=== PATIENT | female | born 1995 | race Hispanic/Latino ===

== ENCOUNTER 2017-09-29 23:07 | Emergency (ER) | payer SELFPAY ==
[2017-09-29] MEDS ORDERED: MAGNE/ALUM HYDROXD 30 ML UCUP ONE (23:44)
[2017-09-29] MEDS ORDERED: LIDOCAINE VISCOUS 2% SOLN 15 ML UDC ONE (23:44)
[2017-09-30 00:33] LABS: Absolute Lymphocytes (CBC) 3.6 K/uL (0.7-4.9); Absolute Monocytes 0.8 K/uL (0.1-1.3); Absolute Neutrophil 3.4 K/uL (1.8-8.0); Basophils % 0.6 % (0-1.3); Eosinophils % 2.5 % (0-4.4); Hematocrit 38.4 % (36.0-45.0); Lymphocytes % 44.9 % (15.3-44.8); MCH 30.4 pg (27.0-35.0); MCV 89.6 fL (80-100); Monocytes % 9.7 % (3.3-12.3); RBC Red Blood Cell Count 4.29 M/uL (3.86-4.86)
[2017-09-30 01:07] LABS: ALT/SGPT 63 U/L (12-78); AST/SGOT 48 U/L (15-37); Alkaline Phosphatase 84 U/L (45-117); BUN Blood Urea Nitrogen 10 mg/dL (7-18); Bicarbonate 24 mmol/L (21-32); Bilirubin Direct < 0.1 mg/dL (0-0.2); Bilirubin Total 0.4 mg/dL (0.2-1.0); Glucose Level 77 mg/dL (74-106); Lipase 296 U/L (73-393); Potassium 4.1 mmol/L (3.5-5.1); Protein, Total 7.6 g/dL (6.4-8.2); Sodium Level 142 mmol/L (136-145)
--- NOTE | 2017-09-30 01:14 | EDPHYS ---
Physician Documentation [facility] Name: Madison Bernabe Age: 22 yrs Sex: Female : 1995 Arrival Date: 09/29/2017 Time: 23:11 Bed 7 Private MD: ED Physician Nigel Titus HPI: 09/29 23:39 This 22 yrs old Female presents to ER via Wheelchair with complaints of Syncope, jr8 Vomiting. 23:39 The patient presents with abdominal pain in the epigastric area. Onset: The jr8 symptoms/episode began/occurred acutely, today. The symptoms do not radiate. Associated signs and symptoms: Pertinent positives: nausea and vomiting. The symptoms are described as sharp. Modifying factors: The symptoms are alleviated by nothing, the symptoms are aggravated by nothing. Severity of pain: At its worst the pain was moderate in the emergency department the pain is unchanged. The patient has experienced similar episodes in the past, several times. The patient has not recently seen a physician. Patient stated that she had acute onset epigastric pain and n/v that caused her to pass out. Did not hit head. Family member caught her. Stated that she has had this since she was young. Stated that she gets gastritis. 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 - Social history:: Smoking status: Patient/guardian denies using tobacco. - Ebola Screening: : Patient negative for fever greater than or equal to 101.5 degrees Fahrenheit, and additional compatible Ebola Virus Disease symptoms Patient denies exposure to infectious person Patient denies travel to an Ebola-affected area in the 21 days before illness onset. ROS: 23:39 Eyes: Negative for injury, pain, redness, and discharge, ENT: Negative for injury, jr8 pain, and discharge, Neck: Negative for injury, pain, and swelling, Cardiovascular: Negative for chest pain, palpitations, and edema, Respiratory: Negative for shortness of breath, cough, wheezing, and pleuritic chest pain, Back: Negative for injury and pain, MS/Extremity: Negative for injury and deformity, Skin: Negative for injury, rash, and discoloration, Neuro: Negative for headache, weakness, numbness, tingling, and seizure. 23:39 Abdomen/GI: Positive for abdominal pain, nausea and vomiting, Negative for diarrhea, constipation, abdominal cramps, abdominal distension, anorexia, dysphagia, hematemesis, black/tarry stool, rectal pain, rectal bleeding, bowel incontinence, flatulence. Exam: 23:39 Head/Face: Normocephalic, atraumatic. Eyes: Pupils equal round and reactive to light, jr8 extra-ocular motions intact. Lids and lashes normal. Conjunctiva and sclera are non-icteric and not injected. Cornea within normal limits. Periorbital areas with no swelling, redness, or edema. ENT: Nares patent. No nasal discharge, no septal abnormalities noted. Tympanic membranes are normal and external auditory canals are clear. Oropharynx with no redness, swelling, or masses, exudates, or evidence of obstruction, uvula midline. Mucous membranes moist. Neck: Trachea midline, no thyromegaly or masses palpated, and no cervical lymphadenopathy. Supple, full range of motion without nuchal rigidity, or vertebral point tenderness. No Meningismus. Cardiovascular: Regular rate and rhythm with a normal S1 and S2. No gallops, murmurs, or rubs. Normal PMI, no JVD. No pulse deficits. Respiratory: Lungs have equal breath sounds bilaterally, clear to auscultation and percussion. No rales, rhonchi or wheezes noted. No increased work of breathing, no retractions or nasal flaring. Back: No spinal tenderness. No costovertebral tenderness. Full range of motion. Skin: Warm, dry with normal turgor. Normal color with no rashes, no lesions, and no evidence of cellulitis. MS/ Extremity: Pulses equal, no cyanosis. Neurovascular intact. Full, normal range of motion. Neuro: Awake and alert, GCS 15, oriented to person, place, time, and situation. Cranial nerves II-XII grossly intact. Motor strength 5/5 in all extremities. Sensory grossly intact. Cerebellar exam normal. Normal gait. 23:39 Abdomen/GI: Inspection: abdomen appears normal, Bowel sounds: active, all quadrants, Palpation: soft, in all quadrants, mild abdominal tenderness, in the epigastric area, right upper quadrant and left upper quadrant, mass, is not appreciated, rebound tenderness, is not appreciated, voluntary guarding, is not appreciated, involuntary guarding, is not appreciated, no appreciated organomegaly, Indicators: McBurney's point is not tender, Figueroa's sign is negative, Rovsing's sign is negative, Liver: no appreciated palpable abnormalities, tenderness, is not appreciated. Vital Signs: 23:10 BP 113 / 68; Pulse 89; Resp 20; Temp 97.9; Pulse Ox 99% on R/A; Weight 52.62 kg (R); fc Height 5 ft. 1 in. (154.94 cm) (R); Pain 9/10; 09/30 00:26 BP 105 / 53; Pulse 84; Resp 16; Pulse Ox 100% on R/A; Pain 0/10; aa1 01:23 BP 103 / 64; Pulse 74; Resp 16; Temp 98; Pulse Ox 99% on R/A; Pain 0/10; ak1 09/29 23:10 Body Mass Index 21.92 (52.62 kg, 154.94 cm) fc MDM: 09/29 23:26 Patient medically screened. [facility] 09/30 01:13 Data reviewed: vital signs, nurses notes, lab test result(s), and as a result, I will jr8 discharge patient. Data interpreted: Pulse oximetry: on room air is 100 %. Interpretation: normal. Counseling: I had a detailed discussion with the patient and/or guardian regarding: the historical points, exam findings, and any diagnostic results supporting the discharge/admit diagnosis, lab results, the need for outpatient follow up, a rhit, to return to the emergency department if symptoms worsen or persist or if there are any questions or concerns that arise at home. 09/29 23:34 Order name: Basic Metabolic Panel; Complete Time: 01:12 09/29 23:34 Order name: CBC with Diff; Complete Time: 00:46 09/29 23:34 Order name: Hepatic Function; Complete Time: 09/29 23:34 Order name: Lipase; Complete Time: : [facility] 09/29 23:37 Order name: Urine Dipstick--Ancillary (enter results); Complete Time: 01:22 [facility] 09/29 23:34 Order name: Urine Test (obtain specimen); Complete Time: 23:39 09/29 23:34 Order name: IV Saline Lock; Complete Time: 00:25 09/29 23:34 Order name: Labs collected and sent; Complete Time: 00:25 09/29 23:34 Order name: Urine Dipstick-Ancillary (obtain specimen); Complete Time: 23:38 09/29 23:37 Order name: Urine --Ancillary (enter results); Complete Time: 01:22 rg2 Administered Medications: 09/29 23:44 Drug: GI Cocktail without - (Maalox Suspension 30 ml, Lidocaine Liquid 2 % 15 aa1 ml) Route: PO; 09/30 00:25 Follow up: Response: Marked relief of symptoms aa1 01:23 Follow up: Response: No adverse reaction ak1 Disposition: 09:32 Co-signature as Attending Physician, Nigel Titus MD I agree with the assessment and reene plan of care. Disposition: 09/30/17 01:13 Discharged to Home. Impression: Gastritis, unspecified. - Condition is Stable. - Discharge Instructions: Gastritis, Adult. - Prescriptions for omeprazole 40 mg Oral capsule,delayed release(DR/EC) - take 1 capsule by ORAL route once daily before a meal; 30 capsule. - Medication Reconciliation Form, Thank You Letter, Antibiotic Education, Prescription Opioid Use form. - Follow up: Private Physician; When: 2 - 3 days; Reason: Recheck today's complaints, Continuance of care, Re-evaluation by your physician. - Problem is new. - Symptoms have improved. Signatures: Dispatcher [employer] [facility] Bernadine Mcdonnell RN RN aa1 Nigel Titus MD MD cha Chretien, Felicia RN RN Adam Youssef PA PA jr8 January Knox RN RN ak1 Corrections: (The following items were deleted from the chart) 00:28 09/29 23:34 Creatinine for Radiology+C.LAB.BRZ ordered. [facility] 09/30 01:28 01:13 09/30/2017 01:13 Discharged to Home. Impression: Gastritis, unspecified. ak1 Condition is Stable. Forms are Medication Reconciliation Form, Thank You Letter, Antibiotic Education, Prescription Opioid Use. Follow up: Private Physician; When: 2 - 3 days; Reason: Recheck today's complaints, Continuance of care, Re-evaluation by your physician. Problem is new. Symptoms have improved. jr8
--- NOTE | 2017-09-30 01:14 | ER ---
Nurse's Notes [facility] Name: Madison Bernabe Age: 22 yrs Sex: Female : 1995 Arrival Date: 09/29/2017 Time: 23:11 Bed 7 Private MD: Diagnosis: Gastritis, unspecified Presentation: 09/29 23:10 Presenting complaint: Significant other states: that she was having nausea, got up to go to bathroom and passed out. He caught pt and she did not hit the ground. Did this additional 2 times. States this has happened before and she was told that it was gastris. Transition of care: patient was not received from another setting of care. Onset of symptoms was September 29, 2017. Risk Assessment: Do you want to hurt yourself or someone else? Patient reports no desire to harm self or others. Initial Sepsis Screen: Does the patient meet any 2 criteria? No. Patient's initial sepsis screen is negative. Does the patient have a suspected source of infection? No. Patient's initial sepsis screen is negative. Care prior to arrival: None. 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 - Social history:: Smoking status: Patient/guardian denies using tobacco. - Ebola Screening: : Patient negative for fever greater than or equal to 101.5 degrees Fahrenheit, and additional compatible Ebola Virus Disease symptoms Patient denies exposure to infectious person Patient denies travel to an Ebola-affected area in the 21 days before illness onset. Screenin:28 Abuse screen: Denies threats or abuse. Nutritional screening: No deficits noted. Tuberculosis screening: No symptoms or risk factors identified. Fall Risk Fall in past 12 months (25 points). Secondary diagnosis (15 points) syncope. No IV (0 pts). Ambulatory Aid- None/Bed Rest/Nurse Assist (0 pts). Gait- Weak (10 pts.). Mental Status- Overestimates/Forgets Limitations (15 pts.). Total Cormier Fall Scale indicates High Risk Score (45 or more points). Fall prevention measures have been instituted. Side Rails Up X 2 Placed Close to Nursing Station Frequent Obs/Assessments Occuring Family Present and informed to notify staff if the need to leave the bedside As available patient and family educated on Fall Prevention Program and Strategies. Assessment: 23:40 General: Appears in no apparent distress. comfortable, Behavior is calm, cooperative, aa1 appropriate for age. Pain: Complains of pain in left upper quadrant and right upper quadrant and epigastric area Quality of pain is described as burning, Pain began 2-3 days ago. Neuro: Level of Consciousness is awake, alert, obeys commands, Oriented to person, place, time, situation, Moves all extremities. Full function Gait is steady, Reports a syncopal episode. Cardiovascular: Denies chest pain, diaphoresis, palpitations, shortness of breath, Heart tones S1 S2 present Rhythm is regular. Respiratory: Airway is patent Respiratory effort is even, unlabored, Respiratory pattern is regular, symmetrical. GI: Abdomen is non-distended, Abd is soft and non tender X 4 quads. Reports epigastric pain, nausea, vomiting. : No signs and/or symptoms were reported regarding the genitourinary system. EENT: No signs and/or symptoms were reported regarding the EENT system. Derm: Skin is intact, is healthy with good turgor, Skin is pink, warm \T\ dry. Musculoskeletal: Circulation, motion, and sensation intact. Capillary refill < 3 seconds. Vital Signs: 23:10 BP 113 / 68; Pulse 89; Resp 20; Temp 97.9; Pulse Ox 99% on R/A; Weight 52.62 kg (R); fc Height 5 ft. 1 in. (154.94 cm) (R); Pain 9/10; 09/30 00:26 BP 105 / 53; Pulse 84; Resp 16; Pulse Ox 100% on R/A; Pain 0/10; aa1 01:23 BP 103 / 64; Pulse 74; Resp 16; Temp 98; Pulse Ox 99% on R/A; Pain 0/10; ak1 09/29 23:10 Body Mass Index 21.92 (52.62 kg, 154.94 cm) ED Course: 09/29 23:10 Arm band placed on Patient placed in an exam room, on a stretcher. fc 23:11 Patient arrived in ED. al2 23:20 Urine collected: clean catch specimen, clear. aa1 23:26 Adam Lopez PA is PHCP. jr8 23:26 Nigel Titus MD is Attending Physician. jr8 23:26 Triage completed. fc 23:29 Patient has correct armband on for positive identification. Placed in gown. Bed in low fc position. Call light in reach. Side rails up X 1. 23:37 Bernadine Mcdonnell, RN is Primary Nurse. aa1 23:45 Missed attempt(s): 20 gauge in right antecubital area. by Juliana Ordonez SoraaLizandro Bleeding aa1 controlled, band aid applied, catheter tip intact. 23:55 Missed attempt(s): 20 gauge in left antecubital area. by Juliana Ordonez SoraaLizandro Bleeding aa1 controlled, band aid applied, catheter tip intact. 09/30 00:05 Initial lab(s) drawn, by va, sent to lab. Inserted saline lock: 22 gauge in right aa1 antecubital area, using aseptic technique. Blood collected. 01:23 No provider procedures requiring assistance completed. IV discontinued, intact, ak1 bleeding controlled, No redness/swelling at site. Pressure dressing applied. Administered Medications: 09/29 23:44 Drug: GI Cocktail without - (Maalox Suspension 30 ml, Lidocaine Liquid 2 % 15 aa1 ml) Route: PO; 09/30 00:25 Follow up: Response: Marked relief of symptoms aa1 01:23 Follow up: Response: No adverse reaction ak1 Outcome: 01:13 Discharge ordered by . jr8 01:23 Discharged to home ambulatory, with family. ak1 01:23 Condition: good 01:23 Discharge instructions given to patient, Instructed on discharge instructions, follow up and referral plans. no drinking with medication, no driving heavy equipment, medication usage, Demonstrated understanding of instructions, follow-up care, medications, Prescriptions given X 1. 01:28 Patient left the ED. ak1 Signatures: Bernadine Mcdonnell, RN RN aa1 Mell Courtney RN RN Adam Lopez PA PA jr8 January Knox RN RN ak1 Shruthi Aguilar al2 Corrections: (The following items were deleted from the chart) 09/29 23:31 23:10 BP 113 / 68; Pulse 89bpm; Resp 20bpm; Pulse Ox 99% RA; 52.62 kg Reported; Height fc 5 ft. 1 in. Reported; BMI: 21.9; Pain 9/10; fc
[2017-09-30 01:21] LABS: Urine Blood TRACE (NEG); Urine Glucose NEGATIVE (NEG); Urine Protein NEGATIVE (NEG); Urine Specific Gravity 1.015 (1.005-1.030)
== END 2017-09-30 01:28 | disposition home or self-care (01) ==
LOC: ER 23:07
DX: K29.70 Gastritis, unspecified, without bleeding (principal); R55 Syncope and collapse; J45.909 Unspecified asthma, uncomplicated; R11.10 Vomiting, unspecified
CPT/HCPCS: 36415; 80048; 80076; 81003; 81025; 83690; 85025; 99284

== ENCOUNTER 2018-02-11 22:52 | Emergency (ER) | payer SELFPAY ==
[2018-02-11 23:59] LABS: Absolute Lymphocytes (CBC) 3.2 K/uL (0.7-4.9); Absolute Monocytes 0.6 K/uL (0.1-1.3); Absolute Neutrophil 3.1 K/uL (1.8-8.0); Basophils % 0.6 % (0-1.3); Eosinophils % 3.1 % (0-4.4); Hematocrit 37.2 % (36.0-45.0); Lymphocytes % 44.8 % (15.3-44.8); MCH 31.6 pg (27.0-35.0); MCV 91.5 fL (80-100); RBC Red Blood Cell Count 4.06 M/uL (3.86-4.86)
[2018-02-12 00:11] LABS: BUN Blood Urea Nitrogen 13 mg/dL (7-18); Bicarbonate 25 mmol/L (21-32); Glucose Level 89 mg/dL (74-106); Potassium 3.6 mmol/L (3.5-5.1); Sodium Level 140 mmol/L (136-145)
[2018-02-12 00:12] LABS: HCG, Quantitative < 1 mIU/mL (1-3)
[2018-02-12 00:44] LABS: Urine Blood 2+ (NEG); Urine Glucose NEGATIVE (NEG); Urine Protein NEGATIVE (NEG); Urine Specific Gravity 1.015 (1.005-1.030); Urine pH 7.5 (5.0-7.0)
--- NOTE | 2018-02-12 02:05 | ER ---
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 Transition of care: patient was not received from another setting of care. Onset of symptoms was February 11, 2018 at 22:30. Risk Assessment: Do you want to hurt yourself or someone else? Patient reports no desire to harm self or others. Initial Sepsis Screen: Does the patient meet any 2 criteria? No. Patient's initial sepsis screen is negative. Does the patient have a suspected source of infection? No. Patient's initial sepsis screen is negative. Care prior to arrival: None. 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 - Social history:: Smoking status: Patient/guardian denies using tobacco. - Ebola Screening: : No symptoms or risks identified at this time. Screenin:15 Abuse screen: Denies threats or abuse. Denies injuries from another. Nutritional lp1 screening: No deficits noted. Tuberculosis screening: No symptoms or risk factors identified. Fall Risk None identified. Assessment: 23:16 General: Appears in no apparent distress. Behavior is appropriate for age. Pain: lp1 Complains of pain in suprapubic area Pain currently is 10 out of 10 on a pain scale. Quality of pain is described as pressure, stabbing. Neuro: Level of Consciousness is awake, alert, obeys commands, Oriented to person, place, time, situation. Cardiovascular: Patient's skin is warm and dry. Respiratory: Respiratory effort is even, unlabored. GI: Abdomen is flat. : Reports vaginal bleeding that is bright red, with clots. EENT: No signs and/or symptoms were reported regarding the EENT system. Derm: Skin is pink, warm \T\ dry. Musculoskeletal: No deficits noted. 02/12 02:00 Reassessment: Patient appears in no apparent distress at this time. Patient is alert, lp1 oriented x 3, equal unlabored respirations, skin warm/dry/pink. Vital Signs: 02/11 23:13 BP 125 / 65; Pulse 65; Resp 16; Temp 97.9(O); Pulse Ox 100% on R/A; Weight 54.43 kg; lp1 Height 5 ft. 1 in. (154.94 cm); Pain 01/01; 02/12 02:00 BP 107 / 60; Pulse 70; Resp 16; Pulse Ox 100% on R/A; lp1 02/11 23:13 Body Mass Index 22.67 (54.43 kg, 154.94 cm) lp1 ED Course: 02/11 22:56 Patient arrived in ED. ds1 22:58 Jose Daniel De La Vega PA is PHCP. jmm 22:58 [place] Kathleen MD is Attending Physician. jmm 23:05 Barbara Tran, EVAN is Primary Nurse. lp1 23:07 Triage completed. lp1 23:14 Arm band placed on left wrist. lp1 23:17 Patient has correct armband on for positive identification. Placed in gown. Bed in low lp1 position. Pulse ox on. NIBP on. 23:47 Initial lab(s) drawn, by me, sent to lab. lp1 02/12 00:31 Inserted saline lock: 24 gauge in left antecubital area, using aseptic technique. ak1 01:10 CT Abd/Pelvis - W/Contrast In Process Unspecified. EDMS 01:10 CT completed. Patient tolerated procedure well. Patient moved to CT via wheelchair. Patient moved back from CT. 02:04 Sly Mccann MD is Referral Physician. jmm 02:12 No provider procedures requiring assistance completed. lp1 02:16 IV discontinued, No redness/swelling at site. Pressure dressing applied. lp1 Administered Medications: No medications were administered Point of Care Testing: Urine : 02/11 23:47 hCG Reading: Negative; Control Reading: Negative; lp1 Outcome: 02/12 02:05 Discharge ordered by . flores 02:16 Discharged to home ambulatory, with significant other. lp1 02:16 Condition: good 02:16 Discharge instructions given to patient, Instructed on discharge instructions, follow up and referral plans. Demonstrated understanding of instructions, follow-up care. 02:16 Patient left the ED. lp1 Signatures: Dispatcher [employer] EDMS Jose Daniel De La Vega PA PA jmm Hagler, Ervin eh Sanford, Demi ds1 Barbara Tran, RN RN lp1 January Knox RN RN ak1
--- NOTE | 2018-02-12 02:06 | EDPHYS ---
Physician Documentation [facility] Name: Madison Bernabe Age: 22 yrs Sex: Female : 1995 Arrival Date: 02/11/2018 Time: 22:56 Bed 20 Private MD: ED Physician Washington Kathleen HPI: 02/11 23:00 This 22 yrs old Female presents to ER via Ambulatory with complaints of jmm Vaginal Bleeding, + Preg <12wks. 23:00 The patient presents with vaginal bleeding that is heavy. Onset: The symptoms/episode jmm began/occurred acutely, just prior to arrival. Associated signs and symptoms: Pertinent positives: pelvic pain. This is a 22 year old female with a history of asthma that presents to the ED with pelvic pain, vaginal bleeding beginning abruptly this evening. Patient states having positive tests at home. . 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 - Social history:: Smoking status: Patient/guardian denies using tobacco. - Ebola Screening: : No symptoms or risks identified at this time. ROS: 23:00 Constitutional: Negative for fever, chills, and weight loss, Eyes: Negative for injury, jmm pain, redness, and discharge, Cardiovascular: Negative for chest pain, palpitations, and edema, Respiratory: Negative for shortness of breath, cough, wheezing, and pleuritic chest pain. 23:00 : Positive for pelvic pain, vaginal bleeding. 23:00 All other systems are negative. Exam: 23:00 Constitutional: This is a well developed, well nourished patient who is awake, alert, jmm and in no acute distress. Head/Face: atraumatic. Chest/axilla: Normal chest wall appearance and motion. Cardiovascular: Regular rate and rhythm. No edema appreciated Respiratory: Normal respirations, no respiratory distress appreciated 23:00 : Pelvic Exam: Speculum exam: mild bleeding, bimanual exam reveals os that is closed, right adnexal tenderness, left adnexal tenderness. 23:00 Skin: Appearance: Color: normal in color. 23:00 Neuro: Orientation: is normal, Mentation: is normal, Memory: is normal. 23:00 Psych: Behavior/mood is pleasant, cooperative. Vital Signs: 23:13 BP 125 / 65; Pulse 65; Resp 16; Temp 97.9(O); Pulse Ox 100% on R/A; Weight 54.43 kg; lp1 Height 5 ft. 1 in. (154.94 cm); Pain 01/01; 02/12 02:00 BP 107 / 60; Pulse 70; Resp 16; Pulse Ox 100% on R/A; lp1 02/11 23:13 Body Mass Index 22.67 (54.43 kg, 154.94 cm) [facility] MDM: 02/11 23:[address] [facility] 02/12 02:04 Data reviewed: vital signs, nurses notes. Counseling: I had a detailed discussion with [facility] the patient and/or guardian regarding: the historical points, exam findings, and any diagnostic results supporting the discharge/admit diagnosis, lab results, radiology results, the need for outpatient follow up, to return to the emergency department if symptoms worsen or persist or if there are any questions or concerns that arise at home. 02/11 23:18 Order name: Quantitative Hcg [facility] 02/11 23:18 Order name: Abo/rh Typing; Complete Time: 00:48 [facility] 02/11 23:18 Order name: Basic Metabolic Panel; Complete Time: 00:17 [facility] 02/11 23:18 Order name: CBC with Diff; Complete Time: 00:06 [facility] 02/11 23:19 Order name: HCG, Quantitative; Complete Time: 00:17 [facility] 02/12 00:03 Order name: Urine Dipstick--Ancillary (enter results); Complete Time: 00:48 ar[facility] 02/11 23:01 Order name: Urine Test (obtain specimen); Complete Time: 23:48 [facility] 02/11 23:01 Order name: Urine Dipstick-Ancillary (obtain specimen); Complete Time: 23:48 [facility] 02/11 23:18 Order name: IV Saline Lock; Complete Time: 00:33 [facility] 02/11 23:18 Order name: Labs collected and sent; Complete Time: 23:48 [facility] 02/11 23:18 Order name: NPO; Complete Time: 23:48 [facility] 02/12 00:22 Order name: CT Abd/Pelvis - W/Contrast [facility] Administered Medications: No medications were administered Point of Care Testing: Urine : 02/11 23:47 hCG Reading: Negative; Control Reading: Negative; lp1 Disposition: 02/12 05:02 Co-signature as Attending Physician, Washington Kathleen MD I agree with the assessment and tw4 plan of care. Disposition: 02/12/18 02:05 Discharged to Home. Impression: pelvic pain, Other abnormal uterine and vaginal bleeding. - Condition is Stable. - Discharge Instructions: Pelvic Pain, Female, Dysfunctional Uterine Bleeding. - Medication Reconciliation Form, Thank You Letter, Antibiotic Education, Prescription Opioid Use form. - Follow up: Sly Mccann MD; When: 2 - 3 days; Reason: Recheck today's complaints, Continuance of care, Re-evaluation by your physician. Signatures: Dispatcher [employer] [facility] Jose Daniel De La Vega PA PA [facility] Barbara Tran, RN RN lp1 Washington Kathleen MD MD tw4 Corrections: (The following items were deleted from the chart) 01:48 02/11 23:20 Transvaginal Ob+US.RAD.BRZ ordered. [facility] 02/12 02:16 02:05 02/12/2018 02:05 Discharged to Home. Impression: pelvic pain; Other abnormal lp1 uterine and vaginal bleeding. Condition is Stable. Forms are Medication Reconciliation Form, Thank You Letter, Antibiotic Education, Prescription Opioid Use. Follow up: Sly Mccann; When: 2 - 3 days; Reason: Recheck today's complaints, Continuance of care, Re-evaluation by your physician. [facility]
--- NOTE | 2018-02-12 08:08 | RAD REPORT ---
EXAM DESCRIPTION: CT - Abdomen Pelvis W Contrast - 02/12/2018 3:23 am CLINICAL HISTORY: Abdominal pain with vaginal bleeding COMPARISON: none. TECHNIQUE: Computed axial tomography of the abdomen pelvis was obtained. 100 cc Isovue-300 was admin istered intravenously. Oral contrast was not requested which limits evaluation of bowel.A preliminary report generated by [employer] in review prior to dictation All CT scans are performed using dose optimization technique as appropriate and may include automated exposure control or mA/KV adjustment according to patient size. FINDINGS: The liver, spleen, pancreas, adrenal and kidneys appear unremarkable. There is no evidence of diverticulitis. The appendix is normal. Endometrial stripe measures 13 millimeters Prominent bilateral ovarian follicles. Significant free fluid is not noted IMPRESSION: Prominent bilateral ovarian follicles may indicate polycystic ovarian syndrome
== END 2018-02-12 02:16 | disposition home or self-care (01) ==
LOC: ER 22:52
DX: N93.9 Abnormal uterine and vaginal bleeding, unspecified (principal)
CPT/HCPCS: 36415; 74177; 80048; 81003; 84702; 85025; 86900; 86901; 99284; Q9967

== ENCOUNTER 2018-10-16 10:53 | Emergency (ER) | payer SELFPAY ==
[2018-10-16] MEDS ORDERED: ACETAMINOPHEN 500 MG TAB ONE (11:24)
[2018-10-16 11:34] LABS: Specific Gravity 1.015 (1.005-1.030)
[2018-10-16] MEDS ORDERED: CEFTRIAXONE/SWI 1gm 1 GM/10 ML SYR ONE (11:39)
[2018-10-16] MEDS ORDERED: NA CHLORIDE 0.9% 1,000 ML ONE (11:39)
[2018-10-16 11:41] LABS: Absolute Lymphocytes (CBC) 0.7 K/uL (0.7-4.9); Basophils % 0.2 % (0-1.3); Lymphocytes % 8.1 % (15.3-44.8); MPV 8.8 fL (7.6-11.3)
[2018-10-16 11:51] LABS: Potassium 3.5 mmol/L (3.5-5.1)
[2018-10-16] MEDS ORDERED: MORPHINE 4 MG/ML SYR ONE (11:57)
[2018-10-16] MEDS ORDERED: ONDANSETRON 4 MG/2 ML VIAL ONE (11:57)
[2018-10-16 12:07] LABS: Blood Morphology Comment NOT SEEN (NOT SEEN); Platelet Estimate ADEQ
[2018-10-16 12:17] LABS: Urine Amorphous Sediment 3+ /HPF (NONE SEEN); Urine Bacteria 20-50 /HPF (<20); Urine RBC TNTC /HPF (NONE SEEN)
[2018-10-16 12:19] LABS: Urine Culture Reflex Order REFLEXED
--- NOTE | 2018-10-16 13:22 | RAD REPORT ---
EXAM DESCRIPTION: CT - Abdomen Pelvis W Contrast - 10/16/2018 1:09 pm CLINICAL HISTORY: Back pain, dysuria, fever COMPARISON: CT study January 2018 TECHNIQUE: Biphasic, helical CT imaging of the abdomen and pelvis was performed following 100 ml non -ionic IV contrast. No oral contrast given. All CT scans are performed using dose optimization technique as appropriate and may include automated exposure control or mA/KV adjustment according to patient size. FINDINGS: No suspicious findings in the lung bases. The liver, spleen, and pancreas show no suspicious findings. Gallbladder and biliary tree are also wi thout suspicious finding. Numerous areas of diminished enhancement are seen in the right renal parenchyma. This is a typical py elonephritis pattern. No renal or perinephric abscess. Right kidney is minimally edematous and there is only a trace amount of perinephric stranding. No obstructing or nonobstructing calculi. No solid m ass of either kidney. No bladder wall thickening or mass identifiable. No bladder calculi. No adrenal abnormalities. Fluid is retained within an otherwise unremarkable stomach. No dilated large or small bowel. No appen dicitis. Uterus and ovaries show no suspicious findings. There are small follicles in each ovary but no new ov brian finding from the 2018 comparison. No free air or pneumatosis. No abnormal free fluid. No brianne ia, mass or bulky lymphadenopathy. No suspicious bony findings. IMPRESSION: Right-sided pyelonephritis. No abscess or other complicating finding.
--- NOTE | 2018-10-16 13:44 | ER ---
Nurse's Notes [facility] Name: Madison Bernabe Age: 23 yrs Sex: Female : 1995 Arrival Date: 10/16/2018 Time: 10:54 Bed 17 Private MD: Diagnosis: Acute tubulo-interstitial nephritis;Urinary tract infection, site not specified Presentation: 10/16 11:01 Presenting complaint: Patient states: my back hurts and it started 3 days ago, it roberts hj when i pee; reports fever and abd pain; reports N/V;. Transition of care: patient was not received from another setting of care. Onset of symptoms was October 16, 2018. Risk Assessment: Do you want to hurt yourself or someone else? Patient reports no desire to harm self or others. Initial Sepsis Screen: Does the patient meet any 2 criteria? No. Patient's initial sepsis screen is negative. Does the patient have a suspected source of infection? No. Patient's initial sepsis screen is negative. Care prior to arrival: None. 11:01 Method Of Arrival: Ambulatory 11:01 Acuity: DAE 3 Triage Assessment: 11:05 Headache History: The patient has had previous headaches and this one is similar to bp previous episodes. General: Appears in no apparent distress. uncomfortable, Behavior is cooperative, appropriate for age, anxious. Pain: Complains of pain in right flank. Pain: Pain currently is 8 out of 10 on a pain scale. Pain began 1 day ago. Also complains of nausea. EENT: No deficits noted. Neuro: No deficits noted. Cardiovascular: No deficits noted. Respiratory: No deficits noted. GI: No signs and/or symptoms were reported involving the gastrointestinal system. : Reports burning with urination. Derm: No deficits noted. Musculoskeletal: No deficits noted. 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 - Social history:: Smoking status: Patient/guardian denies using tobacco. - Ebola Screening: : No symptoms or risks identified at this time. Screenin:10 Abuse screen: Denies threats or abuse. Denies injuries from another. Nutritional bp screening: No deficits noted. Tuberculosis screening: No symptoms or risk factors identified. Fall Risk None identified. Assessment: 11:05 General: SEE TRIAGE NOTE. bp 12:04 Reassessment: CT PENDING. bp 13:55 Reassessment: PT D/C HOME AMBULATORY WITH FAMILY, DX WITH PYELONEPHRITIS. bp Vital Signs: 11:02 BP 107 / 58; Pulse 124; Resp 20; Temp 102.9(TE); Pulse Ox 100% on R/A; Weight 55.34 kg; hj Height 5 ft. 1 in. (154.94 cm); Pain 10/10; 12:05 BP 97 / 43; Pulse 100; Resp 16; Pulse Ox 99% ; bp 13:55 BP 100 / 79; Pulse 93; Resp 16; Temp 98.7; Pulse Ox 98% ; bp 11:02 Body Mass Index 23.05 (55.34 kg, 154.94 cm) hj ED Course: 10:54 Patient arrived in ED. as 11:02 Triage completed. hj 11:02 Arm band placed on right wrist. hj 11:05 Paula Quintana FNP-C is PHCP. kb 11:05 Desmond Bejarano MD is Attending Physician. kb 11:10 Patient has correct armband on for positive identification. Bed in low position. Call bp light in reach. Side rails up X2. Adult w/ patient. 11:16 Andry Son, RN is Primary Nurse. bp 11:25 Inserted saline lock: 22 gauge in right antecubital area, using aseptic technique. bp Blood collected. 13:10 CT Abd/Pelvis - IV Contrast Only In Process Unspecified. EDMS 13:56 No provider procedures requiring assistance completed. IV discontinued, intact, bp bleeding controlled, No redness/swelling at site. Pressure dressing applied. Administered Medications: 11:07 Drug: Tylenol 1000 mg Route: PO; hj 11:35 Follow up: Response: No adverse reaction bp 11:30 Drug: NS 0.9% 1000 ml Route: IV; Rate: 1000 ml; Site: right antecubital; bp 13:57 Follow up: IV Status: Completed infusion bp 11:30 Drug: Rocephin 1 grams Route: IV; Rate: calculated rate; Site: right antecubital; bp 12:00 Follow up: IV Status: Completed infusion; IV Intake: 20ml bp 11:45 Drug: morphine 4 mg Route: IVP; Site: right antecubital; bp 13:50 Follow up: Response: Pain is decreased bp 11:45 Drug: Zofran 4 mg Route: IVP; Site: right antecubital; bp 13:50 Follow up: Response: No adverse reaction; Pain is decreased bp Intake: 12:00 IV: 20ml; Total: 20ml. bp Outcome: 13:44 Discharge ordered by MD. leija 13:56 Discharged to home ambulatory. bp 13:56 Condition: stable 13:56 Discharge instructions given to patient, Instructed on discharge instructions, follow up and referral plans. medication usage, Demonstrated understanding of instructions, follow-up care, medications, Prescriptions given X 1. 13:57 Patient left the ED. bp Addendum: 10/19/2018 15:04 Addendum: Culture Results: Positive urine culture. Phone call Attempt #1 Wrong number s s Certified letter sent to listed address for patient. Signatures: Dispatcher [employer] EDMS Paula Quintana, REAGENT TENDER HELPER-C REAGENT TENDER HELPER-Aurea Garces Shelby, RN RN Onesimo Gold, EVAN RN Andry Robison, EVAN RN bp Corrections: (The following items were deleted from the chart) 10/16 11:04 11:02 Pulse 124bpm; Resp 20bpm; Pulse Ox 100% RA; Temp 102.9F Temporal; 55.34 kg; hj Height 5 ft. 1 in.; BMI: 23.0; Pain 10/10; hj
--- NOTE | 2018-10-16 13:44 | EDPHYS ---
Physician Documentation [facility] Name: Madison Bernabe Age: 23 yrs Sex: Female : 1995 Arrival Date: 10/16/2018 Time: 10:54 Bed 17 Private MD: ED Physician Desmond Bejarano HPI: 10/16 13:21 This 23 yrs old Female presents to ER via Ambulatory with complaints of Fever, kb Headache, Back Pain, Abdominal Pain. 13:21 The patient presents with flank pain, on the right, urinary symptoms, dysuria, kb frequency. Onset: The symptoms/episode began/occurred 3 day(s) ago. Modifying factors: The symptoms are alleviated by nothing, the symptoms are aggravated by nothing. Associated signs and symptoms: Pertinent positives: dysuria, fever, urinary frequency. Severity of symptoms: At their worst the symptoms were moderate, in the emergency department the symptoms are unchanged. The patient has not experienced similar symptoms in the past. The patient has not recently seen a physician. 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 - Social history:: Smoking status: Patient/guardian denies using tobacco. - Ebola Screening: : No symptoms or risks identified at this time. ROS: 13:20 ENT: Negative for injury, pain, and discharge, Neck: Negative for injury, pain, and kb swelling, Cardiovascular: Negative for chest pain, palpitations, and edema, Respiratory: Negative for shortness of breath, cough, wheezing, and pleuritic chest pain, MS/Extremity: Negative for injury and deformity, Skin: Negative for injury, rash, and discoloration, Neuro: Negative for headache, weakness, numbness, tingling, and seizure. 13:20 Constitutional: Positive for chills, fatigue, fever, malaise. 13:20 Abdomen/GI: Positive for abdominal pain. 13:20 : Positive for urinary symptoms, flank pain, urinary frequency, burning with urination. Exam: 13:19 Constitutional: This is a well developed, well nourished patient who is awake, alert, kb and in no acute distress. Head/Face: Normocephalic, atraumatic. ENT: Nares patent. No nasal discharge, no septal abnormalities noted. Tympanic membranes are normal and external auditory canals are clear. Oropharynx with no redness, swelling, or masses, exudates, or evidence of obstruction, uvula midline. Mucous membranes moist. Neck: Trachea midline, no thyromegaly or masses palpated, and no cervical lymphadenopathy. Supple, full range of motion without nuchal rigidity, or vertebral point tenderness. No Meningismus. Chest/axilla: Normal chest wall appearance and motion. Nontender with no deformity. No lesions are appreciated. Cardiovascular: Regular rate and rhythm with a normal S1 and S2. No gallops, murmurs, or rubs. Normal PMI, no JVD. No pulse deficits. Respiratory: Lungs have equal breath sounds bilaterally, clear to auscultation and percussion. No rales, rhonchi or wheezes noted. No increased work of breathing, no retractions or nasal flaring. Skin: Warm, dry with normal turgor. Normal color with no rashes, no lesions, and no evidence of cellulitis. MS/ Extremity: Pulses equal, no cyanosis. Neurovascular intact. Full, normal range of motion. Neuro: Awake and alert, GCS 15, oriented to person, place, time, and situation. Cranial nerves II-XII grossly intact. Motor strength 5/5 in all extremities. Sensory grossly intact. Cerebellar exam normal. Normal gait. 13:19 Abdomen/GI: Inspection: abdomen appears normal, Bowel sounds: normal, in all quadrants, Palpation: soft, in all quadrants, moderate abdominal tenderness, in the right lower quadrant. 13:19 Back: CVA tenderness, that is moderate, is noted on the right. Vital Signs: 11:02 BP 107 / 58; Pulse 124; Resp 20; Temp 102.9(TE); Pulse Ox 100% on R/A; Weight 55.34 kg; hj Height 5 ft. 1 in. (154.94 cm); Pain 10/10; 12:05 BP 97 / 43; Pulse 100; Resp 16; Pulse Ox 99% ; bp 13:55 BP 100 / 79; Pulse 93; Resp 16; Temp 98.7; Pulse Ox 98% ; bp 11:02 Body Mass Index 23.05 (55.34 kg, 154.94 cm) hj MDM: 11:05 Patient medically screened. 13:19 Data reviewed: vital signs, nurses notes. Data interpreted: Pulse oximetry: on room air kb is 99 %. Interpretation: normal. 13:34 Counseling: I had a detailed discussion with the patient and/or guardian regarding: the kb historical points, exam findings, and any diagnostic results supporting the discharge/admit diagnosis, lab results, radiology results, the need for outpatient follow up, a family practitioner, to return to the emergency department if symptoms worsen or persist or if there are any questions or concerns that arise at home. 10/16 11:05 Order name: Urine Microscopic Only; Complete Time: 12:20 10/16 11:05 Order name: Basic Metabolic Panel; Complete Time: 11:53 10/16 11:05 Order name: CBC with Diff; Complete Time: 12:08 10/16 11:19 Order name: Urine Dipstick--Ancillary (enter results) 10/16 11:28 Order name: Test, Urine; Complete Time: 11:39 [facility] 10/16 12:09 Order name: Manual Differential; Complete Time: 12:08 [facility] 10/16 11:05 Order name: Urine Dipstick-Ancillary (obtain specimen); Complete Time: 11:20 10/16 12:08 Order name: CT Abd/Pelvis - IV Contrast Only; Complete Time: 13:34 10/16 12:22 Order name: Urine Culture [facility] 10/16 11:05 Order name: Urine Test (obtain specimen); Complete Time: 11:20 10/16 11:05 Order name: IV Saline Lock; Complete Time: 11:34 10/16 11:05 Order name: Labs collected and sent; Complete Time: 11:34 10/16 13:34 Order name: Vital Signs; Complete Time: 13:51 kb Administered Medications: 11:07 Drug: Tylenol 1000 mg Route: PO; 11:35 Follow up: Response: No adverse reaction bp 11:30 Drug: NS 0.9% 1000 ml Route: IV; Rate: 1000 ml; Site: right antecubital; bp 13:57 Follow up: IV Status: Completed infusion bp 11:30 Drug: Rocephin 1 grams Route: IV; Rate: calculated rate; Site: right antecubital; bp 12:00 Follow up: IV Status: Completed infusion; IV Intake: 20ml bp 11:45 Drug: morphine 4 mg Route: IVP; Site: right antecubital; bp 13:50 Follow up: Response: Pain is decreased bp 11:45 Drug: Zofran 4 mg Route: IVP; Site: right antecubital; bp 13:50 Follow up: Response: No adverse reaction; Pain is decreased bp Disposition: 10/17 06:46 Co-signature as Attending Physician, Desmond Bejarano MD I agree with the assessment and kdr plan of care. Disposition: 10/16/18 13:44 Discharged to Home. Impression: Acute tubulo-interstitial nephritis, Urinary tract infection, site not specified. - Condition is Stable. - Discharge Instructions: Pyelonephritis, Adult, Digu-[id number], Urinary Tract Infection, Adult, [id number]. - Prescriptions for cefpodoxime 100 mg Oral Tablet - take 1 tablet by ORAL route every 12 hours for 10 days take with food; 20 tablet. - Medication Reconciliation Form, Thank You Letter, Antibiotic Education, Prescription Opioid Use form. - Follow up: Emergency Department; When: As needed; Reason: Worsening of condition. Follow up: Private Physician; When: 2 - 3 days; Reason: Recheck today's complaints, Continuance of care, Re-evaluation by your physician. Signatures: Dispatcher [employer] EDMS Paula Quintana, RN HOUSE SUPERVISOR-C RN HOUSE SUPERVISOR-Desmond Cooper MD MD [facility] Onesimo Gold RN RN Andry Son RN RN bp Corrections: (The following items were deleted from the chart) 10/16 13:57 13:44 10/16/2018 13:44 Discharged to Home. Impression: Acute tubulo-interstitial bp nephritis; Urinary tract infection, site not specified. Condition is Stable. Discharge Instructions: Pyelonephritis, Adult, [id number], Urinary Tract Infection, Adult, [id number]. Prescriptions for cefpodoxime 100 mg Oral Tablet - take 1 tablet by ORAL route every 12 hours for 10 days take with food; 20 tablet. and Forms are Medication Reconciliation Form, Thank You Letter, Antibiotic Education, Prescription Opioid Use. Follow up: Emergency Department; When: As needed; Reason: Worsening of condition. Follow up: Private Physician; When: 2 - 3 days; Reason: Recheck today's complaints, Continuance of care, Re-evaluation by your physician. kb
[2018-10-16 14:08] LABS: Urine Blood 3+ (NEG); Urine Glucose NEGATIVE (NEG); Urine Protein 2+ (NEG); Urine pH 5.5 (5.0-7.0)
== END 2018-10-16 13:57 | disposition home or self-care (01) ==
LOC: ER 10:53
DX: N10 Acute pyelonephritis (principal); N39.0 Urinary tract infection, site not specified; J45.909 Unspecified asthma, uncomplicated
CPT/HCPCS: 36415; 74177; 80048; 81003; 81015; 81025; 85025; 87077; 87086; 87088; 87186; 96361; 96365; 96375; 99284; J0696; J2405; J7030; Q9967

== ENCOUNTER 2019-02-18 18:23 | Inpatient (IN) | payer SELFPAY ==
[2019-02-18] MEDS ORDERED: NA CHLORIDE 0.9% 1,000 ML ONE (19:15)
[2019-02-18] MEDS ORDERED: ONDANSETRON 4 MG/2 ML VIAL ONE ×2 (19:15→21:46)
[2019-02-18 19:39] LABS: Absolute Lymphocytes (CBC) 0.9 K/uL (0.7-4.9); Basophils % 0.1 % (0-1.3); Hematocrit 33.2 % (36.0-45.0); Lymphocytes % 5.1 % (15.3-44.8); RBC Red Blood Cell Count 3.96 M/uL (3.86-4.86)
[2019-02-18 20:07] LABS: Albumin 2.6 g/dL (3.4-5.0); Bilirubin Direct 0.5 mg/dL (0-0.2); Bilirubin Total 0.7 mg/dL (0.2-1.0); Protein, Total 6.7 g/dL (6.4-8.2)
[2019-02-18] MEDS ORDERED: KETOROLAC 30 MG/ML INJ ONE (20:34)
[2019-02-18 20:40] LABS: Urine Blood 2+ (NEG); Urine Glucose 1+ (NEG); Urine Protein 2+ (NEG)
[2019-02-18 21:00] LABS: Urine Bacteria >50 /HPF (<20); Urine Culture Reflex Order REFLEXED; Urine Mucus MOD /HPF (NONE SEEN); Urine RBC 20-50 /HPF (NONE SEEN)
[2019-02-18] MEDS ORDERED: CEFTRIAXONE/SWI 1gm 1 GM/10 ML SYR ONE (21:39)
--- NOTE | 2019-02-18 22:25 | EDPHYS ---
Physician Documentation [facility] Name: Madison Bernabe Age: 23 yrs Sex: Female : 1995 Arrival Date: 02/18/2019 Time: 18:31 Bed 18 Private MD: ED Physician eDsmond Bejarano HPI: 02/18 21:16 This 23 yrs old Female presents to ER via Wheelchair with complaints of kb Vomiting, Fever, Headache. 21:16 The patient presents to the emergency department with nausea, vomiting. Possible kb causes: sick contacts. The symptoms are aggravated by nothing. The symptoms are alleviated by nothing. Associated signs and symptoms: Pertinent positives: abdominal pain, fever, nausea, vomiting. The patient has not experienced similar symptoms in the past. The patient has not recently seen a physician. 21:16 Onset: The symptoms/episode began/occurred 4 day(s) ago. Severity of symptoms: At their kb worst the symptoms were moderate in the emergency department the symptoms are unchanged. Pt reports subjective fever, chills, headache, n/v and abd/back pain for 4 days. States everyone in the household has been sick as well.. 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 - Social history:: Smoking status: Patient/guardian denies using tobacco. - Ebola Screening: : No symptoms or risks identified at this time. ROS: 21:14 ENT: Negative for injury, pain, and discharge, Neck: Negative for injury, pain, and kb swelling, Cardiovascular: Negative for chest pain, palpitations, and edema, Respiratory: Negative for shortness of breath, cough, wheezing, and pleuritic chest pain, Back: Negative for injury and pain, : Negative for injury, bleeding, discharge, and swelling, MS/Extremity: Negative for injury and deformity, Skin: Negative for injury, rash, and discoloration. 21:15 Constitutional: Positive for chills, fatigue, fever, malaise. kb 21:15 Abdomen/GI: Positive for abdominal pain, nausea and vomiting. 21:15 Neuro: Positive for headache. Exam: 21:15 Constitutional: This is a well developed, well nourished patient who is awake, alert, kb and in no acute distress. Head/Face: Normocephalic, atraumatic. ENT: Nares patent. No nasal discharge, no septal abnormalities noted. Tympanic membranes are normal and external auditory canals are clear. Oropharynx with no redness, swelling, or masses, exudates, or evidence of obstruction, uvula midline. Mucous membranes moist. Neck: Trachea midline, no thyromegaly or masses palpated, and no cervical lymphadenopathy. Supple, full range of motion without nuchal rigidity, or vertebral point tenderness. No Meningismus. Chest/axilla: Normal chest wall appearance and motion. Nontender with no deformity. No lesions are appreciated. Cardiovascular: Regular rate and rhythm with a normal S1 and S2. No gallops, murmurs, or rubs. Normal PMI, no JVD. No pulse deficits. Respiratory: Lungs have equal breath sounds bilaterally, clear to auscultation and percussion. No rales, rhonchi or wheezes noted. No increased work of breathing, no retractions or nasal flaring. Back: No spinal tenderness. No costovertebral tenderness. Full range of motion. Skin: Warm, dry with normal turgor. Normal color with no rashes, no lesions, and no evidence of cellulitis. MS/ Extremity: Pulses equal, no cyanosis. Neurovascular intact. Full, normal range of motion. Neuro: Awake and alert, GCS 15, oriented to person, place, time, and situation. Cranial nerves II-XII grossly intact. Motor strength 5/5 in all extremities. Sensory grossly intact. Cerebellar exam normal. Normal gait. 21:15 Abdomen/GI: Inspection: abdomen appears normal, Bowel sounds: normal, in all quadrants, Palpation: soft, in all quadrants, mild abdominal tenderness, in all quadrants. Vital Signs: 18:35 BP 114 / 64; Pulse 110; Resp 16; Temp 98.3; Pulse Ox 100% on R/A; Weight 54.43 kg; la1 Height 5 ft. 1 in. (154.94 cm); 19:40 BP 113 / 52; Pulse 103; Resp 18 S; Temp 98.7(O); Pulse Ox 100% on R/A; Pain 8/10; cc3 20:30 BP 103 / 55; Pulse 99; Resp 18 S; Pulse Ox 100% on R/A; cc3 21:19 BP 102 / 58; Pulse 108; Resp 18 S; Pulse Ox 99% on R/A; cc3 22:45 BP 104 / 58; Pulse 104; Resp 17 S; Pulse Ox 100% on R/A; cc3 23:03 BP 102 / 64; Pulse 113; Resp 18 S; Temp 101.8(O); Pulse Ox 100% on R/A; Pain 4/10; cc3 23:52 BP 118 / 60; Pulse 111; Resp 17 S; Temp 101.3(O); Pulse Ox 99% on R/A; cc3 18:35 Body Mass Index 22.67 (54.43 kg, 154.94 cm) la1 MDM: 18:40 Patient medically screened. kb 21:15 Data reviewed: vital signs, nurses notes. Data interpreted: Pulse oximetry: on room air kb is 100 %. Interpretation: normal. 22:23 Counseling: I had a detailed discussion with the patient and/or guardian regarding: the kb historical points, exam findings, and any diagnostic results supporting the discharge/admit diagnosis, lab results, radiology results, the need for further work-up and treatment in the hospital. 22:23 Physician consultation: Pebbles Christensen MD was contacted at 22:23, regarding admission, kb to the medical/surgical unit. patient's condition, and will see patient in ED, shortly. 02/18 18:45 Order name: Basic Metabolic Panel; Complete Time: 20:24 kb 02/18 18:45 Order name: CBC with Diff; Complete Time: 19:49 kb 02/18 18:45 Order name: Hepatic Function; Complete Time: 20:24 kb 02/18 18:45 Order name: Lipase; Complete Time: 20:24 kb 02/18 18:45 Order name: Flu; Complete Time: 19:49 kb 02/18 18:45 Order name: Strep; Complete Time: 19:49 kb 02/18 19:48 Order name: Throat Culture EDMS 02/18 19:50 Order name: [place] Screen Profile; Complete Time: 20:44 kb 02/18 20:24 Order name: Urine Microscopic Only; Complete Time: 21:11 cc3 02/18 20:27 Order name: Urine Dipstick--Ancillary (enter results); Complete Time: 20:39 mw2 02/18 20:27 Order name: Urine --Ancillary (enter results); Complete Time: 20:39 mw2 02/18 21:02 Order name: Urine Culture EDME 02/18 22:32 Order name: Magnesium EDMS 02/18 23:02 Order name: Liver (Hepatic) Function EDMS 02/18 18:45 Order name: IV Saline Lock; Complete Time: 19:27 kb 02/18 19:50 Order name: CT Abd/Pelvis - IV Contrast Only kb 02/18 23:02 Order name: Clear Liquid EDMS 02/18 23:02 Order name: CBC with Automated Diff EDMS 02/18 23:02 Order name: CBC with Automated Diff EDMS 02/18 23:02 Order name: Comprehensive Metabolic Panel EDME 02/18 23:02 Order name: Comprehensive Metabolic Panel [facility] 02/18 18:45 Order name: Labs collected and sent; Complete Time: 19:27 kb 02/18 18:45 Order name: Urine Dipstick-Ancillary (obtain specimen); Complete Time: 20:22 kb Administered Medications: 19:20 Drug: NS 0.9% 1000 ml Route: IV; Rate: 1000 ml; Site: left antecubital; cc3 20:30 Follow up: Response: No adverse reaction; IV Status: Completed infusion; IV Intake: cc3 1000ml 19:20 Drug: Zofran 4 mg Route: IVP; Site: left antecubital; cc3 21:30 Follow up: Response: No adverse reaction; Nausea unchanged cc3 20:30 Drug: TORadol - Ketorolac 15 mg Route: IVP; Site: left antecubital; cc3 21:00 Follow up: Response: No adverse reaction; Pain is decreased cc3 21:35 Drug: Rocephin 1 grams Route: IV; Rate: calculated rate; Site: left antecubital; cc3 21:45 Follow up: Response: No adverse reaction; IV Status: Completed infusion; IV Intake: [id number] 21:45 Drug: Zofran 4 mg Route: IVP; Site: left antecubital; cc3 22:28 Follow up: Response: No adverse reaction; Nausea is decreased cc3 22:40 Drug: NS 0.9% with KCl 20 mEq/L 1000 ml Route: IV; Rate: 125 ml/hr; Site: left cc3 antecubital; 23:30 Follow up: Response: No adverse reaction; IV Status: Infusion continued upon admission cc3 22:44 CANCELLED (Other Intervention Used): NS 0.9% with KCl 40 mEq/L 1000 ml IV at 125 ml/hr cc3 continuous 22:50 Drug: Motrin 400 mg Route: PO; cc3 02/19 00:00 Follow up: Response: No adverse reaction; Temperature is decreased; Pain is decreased cc3 02/18 22:50 Drug: Tylenol 500 mg Route: PO; cc3 02/19 00:00 Follow up: Response: No adverse reaction; Temperature is decreased; Pain is decreased cc3 Disposition: 02/18/19 22:24 Hospitalization ordered by Pebbles Christensen for Inpatient Admission. Preliminary diagnosis are Acute tubulo-interstitial nephritis - bilateral, Hypokalemia, Elevated white blood cell count. - Bed requested for Telemetry/MedSurg (Inpatient). - Status is Inpatient Admission. cc3 - Condition is Stable. - Problem is new. - Symptoms are unchanged. UTI on Admission? Yes Addendum: 02/23/2019 09:59 Co-signature as Attending Physician, Desmond Bejarano MD I agree with the assessment and k dr plan of care. Signatures: Dispatcher [employer] EDPaula Nuñez, DAYDAY-C LINE AND FRAME POLER-Ckb Marimar Theodore RN RN Desmond Bejarano MD MD [facility] [place] Dunn FNP-C LINE AND FRAME POLER-Cla1 Tamara Brice cc3 Corrections: (The following items were deleted from the chart) 02/18 21:15 21:14 ENT: Negative for injury, pain, and discharge, Neck: Negative for injury, pain, kb and swelling, Cardiovascular: Negative for chest pain, palpitations, and edema, Respiratory: Negative for shortness of breath, cough, wheezing, and pleuritic chest pain, Back: Negative for injury and pain, : Negative for injury, bleeding, discharge, and swelling, MS/Extremity: Negative for injury and deformity, Skin: Negative for injury, rash, and discoloration, kb 22:17 22:11 Transition of care: After a detail discussion of the patient's case, care is kb transferred to Jose Daniel SANCHEZ 22:25 22:23 Counseling: I had a detailed discussion with the patient and/or guardian heladio regarding: the historical points, exam findings, and any diagnostic results supporting the discharge/admit diagnosis, lab results, radiology results, the need for further work-up and treatment in the hospital, kb 22:44 22:19 NS 0.9% with KCl 40 mEq/L 1000 ml IV at 125 ml/hr continuous ordered. kb cc3 22:44 22:36 NS 0.9% with KCl 40 mEq/L 1000 ml IV at 125 ml/hr continuous ordered. cc3 cc3 23:04 22:24 Hospitalization Ordered by Pebbles Christensen MD for Inpatient Admission. Preliminary diagnosis is Acute tubulo-interstitial nephritis - bilateral; Hypokalemia; Elevated white blood cell count. Bed requested for Telemetry/MedSurg (Inpatient). Status is Inpatient Admission. Condition is Stable. Problem is new. Symptoms are unchanged. UTI on Admission? Yes. 23:09 23:04 02/18/2019 22:24 Hospitalization Ordered by Pebbles Christensen MD for Inpatient Admission. Preliminary diagnosis is Acute tubulo-interstitial nephritis - bilateral; Hypokalemia; Elevated white blood cell count. Bed requested for Telemetry/MedSurg (Inpatient). Status is Inpatient Admission. Condition is Stable. Problem is new. Symptoms are unchanged. UTI on Admission? Yes. 02/19 00:28 02/18 23:09 02/18/2019 22:24 Hospitalization Ordered by Pebbles Christensen MD for Inpatient cc3 Admission. Preliminary diagnosis is Acute tubulo-interstitial nephritis - bilateral; Hypokalemia; Elevated white blood cell count. Bed requested for Telemetry/MedSurg (Inpatient). Status is Inpatient Admission. Condition is Stable. Problem is new. Symptoms are unchanged. UTI on Admission? Yes.
--- NOTE | 2019-02-18 22:25 | ER ---
Nurse's Notes [facility] Name: Madison Bernabe Age: 23 yrs Sex: Female : 1995 Arrival Date: 02/18/2019 Time: 18:31 Bed 18 Private MD: Diagnosis: Acute tubulo-interstitial nephritis-bilateral;Hypokalemia;Elevated white blood cell count Presentation: 02/18 18:36 Presenting complaint: Patient states: for the past four days I have been feeling sick la1 with cough, RODRIGUEZ, chills, vomiting. Pt with syncopal episode in lobby while drinking water. Transition of care: patient was not received from another setting of care. Onset of symptoms was February 18, 2019. Risk Assessment: Do you want to hurt yourself or someone else? Patient reports no desire to harm self or others. Initial Sepsis Screen: Does the patient meet any 2 criteria? No. Patient's initial sepsis screen is negative. Does the patient have a suspected source of infection? No. Patient's initial sepsis screen is negative. Care prior to arrival: None. 18:36 Method Of Arrival: Wheelchair la1 18:36 Acuity: DAE 3 la1 Triage Assessment: 19:10 General: Appears in no apparent distress. uncomfortable, Behavior is calm, cooperative, cc3 appropriate for age. Pain: Complains of pain in back, head Pain currently is 8 out of 10 on a pain scale. Quality of pain is described as aching. GI: Reports vomiting, back pain, headache. 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 - Social history:: Smoking status: Patient/guardian denies using tobacco. - Ebola Screening: : No symptoms or risks identified at this time. Screenin:10 Abuse screen: Denies threats or abuse. Denies injuries from another. Nutritional cc3 screening: No deficits noted. Tuberculosis screening: No symptoms or risk factors identified. Fall Risk Ambulatory Aid- None/Bed Rest/Nurse Assist (0 pts). Gait- Normal/Bed Rest/Wheelchair (0 pts) Mental Status- Oriented to own ability (0 pts). Assessment: 19:10 General: Appears in no apparent distress. uncomfortable, Behavior is calm, cooperative, cc3 appropriate for age. Pain: Complains of pain in back, head Pain currently is 8 out of 10 on a pain scale. Quality of pain is described as aching, Pain began 4 days ago. Neuro: Level of Consciousness is awake, alert, obeys commands, Oriented to person, place, time, situation, Appropriate for age. Cardiovascular: Denies chest pain, Heart tones S1 S2 present Capillary refill < 3 seconds in bilateral fingers Patient's skin is warm and dry. Respiratory: Airway is patent Respiratory effort is even, unlabored, Respiratory pattern is regular, symmetrical, Breath sounds are clear bilaterally. GI: Abdomen is flat, Bowel sounds present X 4 quads. Abd is soft and non tender X 4 quads. : Reports she's taking azo and her urine as per the patient is very dark orange. EENT: No signs and/or symptoms were reported regarding the EENT system. Derm: Skin is intact, is healthy with good turgor, Skin is pink, warm \T\ dry. normal. Musculoskeletal: Circulation, motion, and sensation intact. Range of motion: intact in all extremities. 20:18 Reassessment: Patient appears in no apparent distress at this time. Patient and/or cc3 family updated on plan of care and expected duration. Pain level reassessed. Patient is alert, oriented x 3, equal unlabored respirations, skin warm/dry/pink. 21:32 Reassessment: Patient appears in no apparent distress at this time. Patient and/or cc3 family updated on plan of care and expected duration. Pain level reassessed. Patient is alert, oriented x 3, equal unlabored respirations, skin warm/dry/pink. 22:20 Reassessment: Patient appears in no apparent distress at this time. Patient and/or cc3 family updated on plan of care and expected duration. Pain level reassessed. Patient is alert, oriented x 3, equal unlabored respirations, skin warm/dry/pink. Patient for admission, hospitalist Dr. Christensen at bedside. 23:50 Reassessment: Patient appears in no apparent distress at this time. Patient and/or cc3 family updated on plan of care and expected duration. Pain level reassessed. Patient is alert, oriented x 3, equal unlabored respirations, skin warm/dry/pink. Room available in 405, called for report but was told that the nurse who will receive will just call me. 02/19 00:05 Reassessment: Patient appears in no apparent distress at this time. Patient and/or cc3 family updated on plan of care and expected duration. Pain level reassessed. Patient is alert, oriented x 3, equal unlabored respirations, skin warm/dry/pink. EVAN Streeter called and report handed over to her for continuity of care and management. Patient states feeling better. Patient states symptoms have improved. 00:20 Reassessment: Patient appears in no apparent distress at this time. Patient and/or cc3 family updated on plan of care and expected duration. Pain level reassessed. Patient is alert, oriented x 3, equal unlabored respirations, skin warm/dry/pink. Patient left ER for admission vitally stable by wheelchair escorted by me. No valuables left in the patient's room. Patient denies pain at this time. Patient states feeling better. Patient states symptoms have improved. Vital Signs: 02/18 18:35 BP 114 / 64; Pulse 110; Resp 16; Temp 98.3; Pulse Ox 100% on R/A; Weight 54.43 kg; la1 Height 5 ft. 1 in. (154.94 cm); 19:40 BP 113 / 52; Pulse 103; Resp 18 S; Temp 98.7(O); Pulse Ox 100% on R/A; Pain 8/10; cc3 20:30 BP 103 / 55; Pulse 99; Resp 18 S; Pulse Ox 100% on R/A; cc3 21:19 BP 102 / 58; Pulse 108; Resp 18 S; Pulse Ox 99% on R/A; cc3 22:45 BP 104 / 58; Pulse 104; Resp 17 S; Pulse Ox 100% on R/A; cc3 23:03 BP 102 / 64; Pulse 113; Resp 18 S; Temp 101.8(O); Pulse Ox 100% on R/A; Pain 4/10; cc3 23:52 BP 118 / 60; Pulse 111; Resp 17 S; Temp 101.3(O); Pulse Ox 99% on R/A; cc3 18:35 Body Mass Index 22.67 (54.43 kg, 154.94 cm) la1 ED Course: 18:31 Patient arrived in ED. mr 18:36 Triage completed. la1 18:36 Arm band placed on left wrist. la1 18:39 Paula Quintana FNP-C is PHCP. kb 18:40 Desmond Bejarano MD is Attending Physician. kb 19:07 Kimberly Borges, EVAN is Primary Nurse. aj1 19:10 Patient has correct armband on for positive identification. Placed in gown. Bed in low cc3 position. Call light in reach. Side rails up X2. Pulse ox on. NIBP on. 20:06 [place] Screen Profile Sent. lt1 20:15 Radiology exam delayed due to lab results not completed at this time. (BUN/Creatinine). nj 20:[address] via wheelchair. nj 20:46 CT Abd/Pelvis - IV Contrast Only In Process Unspecified. EDMS 22:07 PHCP role handed off by Paula Quintana FNP-C jm 22:07 Jose Daniel De La Vega PA is PHCP. [facility] 22:16 Paula Quintana FNP-C is PHCP. kb 22:24 Pebbles Christensen MD is Hospitalizing Provider. kb 02/19 00:20 No provider procedures requiring assistance completed. Patient admitted, IV remains in cc3 place. Administered Medications: 02/18 19:20 Drug: NS 0.9% 1000 ml Route: IV; Rate: 1000 ml; Site: left antecubital; cc3 20:30 Follow up: Response: No adverse reaction; IV Status: Completed infusion; IV Intake: cc3 1000ml 19:20 Drug: Zofran 4 mg Route: IVP; Site: left antecubital; cc3 21:30 Follow up: Response: No adverse reaction; Nausea unchanged cc3 20:30 Drug: TORadol - Ketorolac 15 mg Route: IVP; Site: left antecubital; cc3 21:00 Follow up: Response: No adverse reaction; Pain is decreased cc3 21:35 Drug: Rocephin 1 grams Route: IV; Rate: calculated rate; Site: left antecubital; cc3 21:45 Follow up: Response: No adverse reaction; IV Status: Completed infusion; IV Intake: [id number] 21:45 Drug: Zofran 4 mg Route: IVP; Site: left antecubital; cc3 22:28 Follow up: Response: No adverse reaction; Nausea is decreased cc3 22:40 Drug: NS 0.9% with KCl 20 mEq/L 1000 ml Route: IV; Rate: 125 ml/hr; Site: left cc3 antecubital; 23:30 Follow up: Response: No adverse reaction; IV Status: Infusion continued upon admission cc3 22:44 CANCELLED (Other Intervention Used): NS 0.9% with KCl 40 mEq/L 1000 ml IV at 125 ml/hr cc3 continuous 22:50 Drug: Motrin 400 mg Route: PO; cc3 02/19 00:00 Follow up: Response: No adverse reaction; Temperature is decreased; Pain is decreased cc3 02/18 22:50 Drug: Tylenol 500 mg Route: PO; cc3 02/19 00:00 Follow up: Response: No adverse reaction; Temperature is decreased; Pain is decreased cc3 Intake: 02/18 20:30 IV: 1000ml; Total: 1000ml. cc3 21:45 IV: 10ml; Total: 1010ml. cc3 Outcome: 22:24 Decision to Hospitalize by Provider. 02/19 00:20 Admitted to Tele accompanied by nurse, family with patient, via wheelchair, room 405, cc3 with chart, Report called to EVAN Streeter Condition: stable Instructed on the need for admit, Demonstrated understanding of instructions. 00:28 Patient left the ED. cc3 Signatures: Dispatcher [employer] EDPaula Nuñez, GONZALOC DAYDAY-Kimberly Merlos RN RN aj1 Mickail, Joel, PA PA jmm Rivera, Mary mr AttembrandyUrban, CONTAINER FINISHING INSPECTOR-C CONTAINER FINISHING INSPECTOR-Cla1 Silvestre Burton Charlene cc3 Luna Carrasco Corrections: (The following items were deleted from the chart) 02:12 02:11 Response: No adverse reaction; Temperature is decreased; Pain is decreased cc3 cc3
[2019-02-18] MEDS ORDERED: NS KCL 20MEQ 1,000 ML IV ONE (22:38)
[2019-02-18] MEDS ORDERED: MORPHINE 2 MG/ML SYR IV PRN (22:51)
[2019-02-18] MEDS ORDERED: ALBUTEROL 2.5 MG/3 ML NEB SOL NEB PRN (22:51)
[2019-02-18] MEDS ORDERED: ACETAMINOPHEN 500 MG TAB ONE (22:53)
[2019-02-18] MEDS ORDERED: IBUPROFEN 400 MG TAB ONE (22:53)
[2019-02-18] MEDS ORDERED: Levofloxacin 750mg IV 750 MG/150 ML BAG IV SCH (23:00)
[2019-02-18] MEDS ORDERED: POTASSIUM CL 40 MEQ in NA CHLORIDE 0.9% 500 ML IV SCH (23:00)
[2019-02-19] MEDS: KCL 20 MEQ/100 mL IVPB 20 MEQ/100 ML BAG IV SCH ×2 (01:26→03:00)
[2019-02-19] MEDS: ONDANSETRON 4 MG/2 ML VIAL IV PRN ×3 (01:26→12:22)
[2019-02-19] MEDS: ACETAMINOPHEN 500 MG TAB PO PRN ×3 (01:26→17:32)
[2019-02-19] MEDS: Ringers Lactate 1,000 ML IV SCH ×2 (01:26→07:35)
[2019-02-19] MEDS ORDERED: NA CHLORIDE 0.9% 1,000 ML IV ONE ×4 (03:33→11:00)
[2019-02-19 04:13] LABS: Absolute Lymphocytes (CBC) 1.2 K/uL (0.7-4.9); Basophils % 0.1 % (0-1.3); Hematocrit 30.4 % (36.0-45.0); Lymphocytes % 7.5 % (15.3-44.8); MPV 8.9 fL (7.6-11.3); RBC Red Blood Cell Count 3.62 M/uL (3.86-4.86)
--- NOTE | 2019-02-19 04:21 | HP ---
Date of Admission: 02/18/2019 Presenting Complaint: Fever, body aches, nausea and vomiting. History Of Present Illness: Ms. Filemon Bernabe is a 23-year-old female with past medic al history of asthma, gastritis, recurrent UTIs on average q.3 months, who developed fever, cough, na usea with vomiting and abdominal flank pain since the last 1 week. She admit to chills. She states her symptoms gradually continued to worsen and abdominal pain has worsened to the intense of coming t o the ER. She admit to sick contacts at home. She denies any diarrhea or constipation. She admit t o intermittent dysuria with more prominent increase in urine frequency. Had previous UTIs. Has no w arranted inpatient admission in the past. She admitted to drinking lots of Coke. She admit to famil y history of recurrent UTIs. In the ED, she was noted with UTI and has been admitted for a CT findin g of bilateral pyelonephritis. Past Medical History: Asthma and gastritis. Social History: Patient lives in the community with the spouse. No history of tobacco, alcohol, or illicit drug use. Family History: Significant for recurrent UTIs, but no history of coronary artery disease or kidney cancer. Home Medications: None. Past Surgical History: None. Review of Systems: General: The patient admit to fever and arthralgias with headaches and chills. Respiratory: Negative for cough, but positive for feeling of shortness of breath. Cardiovascular: Positive for palpitations, but no chest pain. GI: Positive for abdominal pain, bilateral flanks, and extending to the suprapubic area, also positi ve for flank pain bilaterally. : Positive for dysuria and urine frequency. Integumentary: No new skin rash. No itching. Neuro: Positive for headaches. No seizures. No confusion. Physical Examination: Vital Signs: Blood pressure 114/64, respiratory rate of 16, pulse of 110, repeat now of 99, temperat ure of 98.3, O2 saturation of 100% on room air. General: A small-built young female. Intermittently having chills. Conversant. HEENT: Head, atraumatic, normocephalic. Pupils equal and reactive to light. Anicteric. Neck: No JVD. No carotid bruit. Moist oral mucosa. Respiratory: Good air entry. No crepitation. Cardiovascular: S1, S2. Tachycardic. GI: Abdomen full, soft. Bowel sounds positive in all quadrants. Mild tenderness over bilateral fla nk area with positive CVA tenderness bilaterally. No suprapubic area tenderness or fullness. Extremities: No pedal edema. No calf tenderness. Neuro: Patient is alert and oriented. Cranial nerves 2 through 12 grossly intact. Laboratory Data: WBC 18.5, hemoglobin 11, platelet 224, neutrophils 80%. Sodium 140, potassium 3.0, bicarb of 25, calcium 8.4, creatinine 0.8, AST of 90, ALT of 66, alkaline phosphatase 158, albumin 2 .6, lipase 89. Urinalysis; 3+ leukocyte esterase, greater than 50 wbc with greater than 50 bacteria. [place] screen negative. Urine negative. CT of the abdomen shows mild ascending and descen ding sigmoid colitis. Edematous kidney with mild perinephric stranding. Hook shaped area of abscess transcending lower left kidney pole. Images reviewed by me. Assessment: 1.Bilateral pyelonephritis. 2.Left kidney abscess. 3.Urinary tract infection. 4.Hypokalemia. 5.LFT elevation. Plan: We will admit patient to inpatient status. We will manage patient for the followin.Bilateral pyelonephritis. We start IV Levaquin antibiotics. We will obtain urine for culture and adjust antibiotics as tolerated. We will do Tylenol as well as scheduled ibuprofen for fever contro l. We will do p.r.n. pain medication as needed for CVA tenderness. Need for antibiotics for more th an 14 days discussed. Given small left kidney abscess, the patient may need repeat CT without contra st in 2-3 days to monitor size of abscess if still having symptoms. However, if still persistent fev er over the next 48 hours, may need Interventional Radiology drainage of the abscess. 2.Hypokalemia. We will replete. 3.History of gastritis. We will do PPI b.i.d. 4.History of recurrent UTI. Given associated asthma, the patient might benefit from immunoglobulin screenings. 5.DVT prophylaxis. Subcutaneus heparin. 6.Advanced directive. Patient is a full code. Total time spent review of record, discussion with patient and spouse and evaluation greater than 60 minutes. EO/MODL Voice ID: [id number]
[2019-02-19 04:31] LABS: ALT/SGPT 66 U/L (12-78); AST/SGOT 69 U/L (15-37); Albumin 2.3 g/dL (3.4-5.0); Alkaline Phosphatase 157 U/L (45-117); BUN Blood Urea Nitrogen 5 mg/dL (7-18); Bicarbonate 24 mmol/L (21-32); Bilirubin Total 0.7 mg/dL (0.2-1.0); Glucose Level 125 mg/dL (74-106); Protein, Total 5.9 g/dL (6.4-8.2); Sodium Level 139 mmol/L (136-145)
[2019-02-19 04:36] LABS: Potassium 2.9 mmol/L (3.5-5.1)
[2019-02-19] MEDS ORDERED: POTASSIUM CL 40 MEQ in NA CHLORIDE 0.9% 500 ML IV SCH ×2 (07:00→09:00)
[2019-02-19] MEDS ORDERED: PROMETHAZINE 25 MG/ML VIAL IV PRN (07:34)
[2019-02-19] MEDS ORDERED: HYDROCODONE/APAP 7.5/325 MG TAB PO PRN (07:40)
[2019-02-19] MEDS ORDERED: TRAMADOL HCL 50 MG TAB PO PRN (07:40)
[2019-02-19] MEDS ORDERED: INFLUENZA VACCINE (for 3y+) 0.5 ML DOSE IMVAC ONE (08:00)
[2019-02-19] MEDS ORDERED: KCL 20 MEQ/100 mL IVPB 20 MEQ/100 ML BAG IV SCH (08:30)
[2019-02-19] MEDS: FAMOTIDINE 20 MG/2 ML VIAL IV SCH ×2 (09:27→20:40)
[2019-02-19] MEDS: NAPROXEN 250 MG TAB PO SCH ×2 (09:27→20:37)
--- NOTE | 2019-02-19 10:50 | P.PN ---
Subjective Date of Service: 02/19/19 Primary Care Provider: none Chief Complaint: Chills Subjective: Other (Patient with nausea and vomiting this morning. Some chills noted tachycardic. Patient with history of UTIs in the past. I was called again to a code yellow due to syncope. Blood pressure was low, patient tachycardic. Another Fluid bolus given, that has been a total of 3 L. Patient appears dry. Patient will be moved to the ICU for close monitoring. Spoke with surgery to put in central line. Will adjust IV antibiotic therapy. Case discussed with patient and family member by phone.) Physical Examination - Vital Signs Temperature: 101.6 F Blood Pressure: 90/55 Pulse: 112 Respirations: 18 Pulse Ox (%): 98 - Physical Exam General: Alert, Oriented x3, Cooperative, Other (Patient transfer to ICU.) HEENT: Atraumatic Neck: Supple Respiratory: Clear to auscultation bilaterally, Normal air movement Cardiovascular: Abnormal pulses (Sinus tachycardia) Gastrointestinal: Normal bowel sounds, Soft and benign, Non-distended, Tenderness (Pain to the flank bilateral. Mild pain to the abdomen) Integumentary: No tenderness/swelling, No erythema, No warmth, No cyanosis, Other (Pulses to the lower extremity pedal pulses good.) Neurological: Normal speech, Normal strength at 5/5 x4 extr, Normal tone, Normal affect, Other (Patient feels warm to touch) - Studies Laboratory Data (last 24 hrs) 02/18/19 19:20: Magnesium 2.1 02/18/19 19:20: WBC 18.5 H, Hgb 11.1 L, Hct 33.2 L, Plt Count 224 02/18/19 19:20: Sodium 140, Potassium 3.0 L, BUN 7, Creatinine 0.84, Glucose 106 , Total Bilirubin 0.7, AST 90 H, ALT 66, Alkaline Phosphatase 158 H, Lipase 89 Microbiology Data (last 24 hrs): 02/18/19 19:05 Throat Group A Streptococcus Rapid Screen - Final 02/18/19 19:05 Nasopharnyx Influenza Type A Antigen Screen - Final 02/18/19 19:05 Nasopharnyx Influenza Type B Antigen Screen - Final Medications List Reviewed: Yes Assessment & Plan Discharge Plan: Home Plan to discharge in: Greater than 2 days Physician Review Additional Text: Impression: Chills, fever secondary severe sepsis related to bilateral pyelonephritis, left greater than right with history of recurrent UTI, without obstruction, cannot exclude 9 mm developing abscess in the lower lobe of left kidney Mild descending/sigmoid colitis without obstruction Acute renal injury secondary to dehydration Tachycardia secondary to dehydration Nausea and vomiting likely related to above Elevated liver function likely related to above Anemia suspect iron deficiency Plan: Chills, fever secondary severe sepsis related to bilateral pyelonephritis, left greater than right with history of recurrent UTI, without obstruction, cannot exclude 9 mm developing abscess in the lower lobe of left kidney: Patient transferred to ICU for close monitoring. Will obtain blood cultures x2. Patient will be given another fluid bolus. Continue aggressive IV fluid hydration. Patient will have gotten 3 L of normal saline. Will continue to replace potassium and magnesium. Will monitor electrolytes closely. Will recheck lab-CBC, as CMP and magnesium now. Will order stat renal ultrasound to evaluate kidneys. Will need to rule out worsening abscess. Will change IV antibiotic therapy to meropenem and Flagyl to cover pyelonephritis and colitis. Discontinue Levaquin. Await urine and blood cultures. Sepsis protocol in place. Continue to monitor closely. Will recheck patient in the next 4-6 hr. Will monitor input and output closely. Mild descending/sigmoid colitis without obstruction: Will add Flagyl. Merrem IV added. Levaquin discontinued. Continue with care clear liquid diet as tolerated. May need to hold diet if still with increased nausea and vomiting. Will provide medication for nausea. Acute renal injury secondary to dehydration: Continue with aggressive IV fluids. Continue as above Tachycardia secondary to dehydration: Continue with aggressive IV fluids. Continue as above Nausea and vomiting likely related to above: Continue with IV medication. Continue as above Elevated liver function likely related to above: Improved. Will monitor closely. Will check hepatitis panel. Anemia suspect iron deficiency: Will continue to monitor closely. Will check iron and B12 studies. Time Spent Managing Pts Care (In Minutes): 60
[2019-02-19] MEDS ORDERED: Meropenem 1000 MG/VIAL IV SCH (10:53)
[2019-02-19] MEDS ORDERED: NACHLORIDE 0.45% 1,000 ML IV SCH (11:00)
[2019-02-19] MEDS ORDERED: LIDOCAINE 1% 20 ML MDV ONE (11:11)
[2019-02-19] MEDS ORDERED: METRONIDAZOLE 500mg IVPB 500 MG/100 ML BAG IV SCH (11:30)
--- NOTE | 2019-02-19 11:37 | RAD REPORT ---
EXAM DESCRIPTION: CT - Abdomen Pelvis W Contrast - 02/19/2019 3:42 am CLINICAL HISTORY: 23 years Female Chills, vomiting, syncope. TECHNIQUE: Contiguous axial images obtained through the abdomen and pelvis following intravenous con trast administration. Coronal and sagittal reformatted images provided. This CT exam was performed according to our departmental dose-optimization program, which includes on e or more of the following dose reduction techniques: automated exposure control, adjustment of the m A and/or kV according to patient size, and/or use of iterative reconstruction technique. COMPARISON: Comparison is made to the prior examination dated 10/16/2018. FINDINGS: The bilateral nephrograms are striated, mildly on the right and moderately on the left. No hydronephrosis or visualized urinary calculus. In the lower pole of the left kidney, there is a 9 mm cystic focus which was not previously visualized. A developing renal abscess is not excluded. The lung bases, liver, biliary tree, gallbladder, pancreas, spleen, adrenal glands, uterus, and ovari es are normal. The urinary bladder is partially collapsed. Normal stomach, small bowel, and appendix. There is mild diffuse inflammation of the descending colon and sigmoid. No bowel obstruction, pneumatosis, free intraperitoneal air, or ascites. Mild diffuse, likely reactive periaortic lymphadenopathy. No abdominal aortic aneurysm or dissection. No acute osseous abnormality. IMPRESSION: Bilateral pyelonephritis, left greater than right. No evidence of urinary obstruction. C annot exclude a 9 mm developing abscess in the lower pole of the left kidney. Mild descending and sigmoid colitis without bowel obstruction or perforation. Mild diffuse, likely reactive periaortic lymphadenopathy. Electronically signed by: Alis Carrion MD 02/18/2019 9:23 PM TRAINER Due to temporary technical issues with the PACS/Fluency reporting system, reports are being signed by the in house radiologist as a courtesy to ensure prompt reporting. The interpreting radiologist is f ully responsible for the content of the report.
[2019-02-19 11:56] LABS: Absolute Lymphocytes (CBC) 0.7 K/uL (0.7-4.9); Basophils % 0.1 % (0-1.3); Hematocrit 27.7 % (36.0-45.0); Lymphocytes % 4.5 % (15.3-44.8); MPV 9.4 fL (7.6-11.3); RBC Red Blood Cell Count 3.36 M/uL (3.86-4.86)
[2019-02-19] MEDS: NACHLORIDE 0.45% 1,000 ML with POTASSIUM CL 40 MEQ IV SCH ×2 (12:08)
--- NOTE | 2019-02-19 12:19 | P.OP ---
Preoperative diagnosis: Need for IV Access / Hypotension Postoperative diagnosis: Need for IV Access / Hypotension Primary procedure: Placement of LEFT femoral vein central line Anesthesia: Local 1% lidocaine Estimated blood loss: <5cc Specimen: none Findings: Dark, non-pulsatile blood returned Complications: None Implants: Triple lumen central line Transferred to: Recovery Room Condition: Good
[2019-02-19 12:22] LABS: ALT/SGPT 59 U/L (12-78); AST/SGOT 50 U/L (15-37); Albumin 2.2 g/dL (3.4-5.0); Alkaline Phosphatase 131 U/L (45-117); BUN Blood Urea Nitrogen 3 mg/dL (7-18); Bicarbonate 22 mmol/L (21-32); Bilirubin Total 0.9 mg/dL (0.2-1.0); Glucose Level 104 mg/dL (74-106); Protein, Total 5.5 g/dL (6.4-8.2); Sodium Level 142 mmol/L (136-145)
[2019-02-19 12:24] LABS: Potassium 2.9 mmol/L (3.5-5.1)
[2019-02-19 12:39] LABS: Ferritin 111.8 ng/mL (8-388)
[2019-02-19 13:02] LABS: Blood Morphology Comment NOT SEEN (NOT SEEN); Platelet Estimate ADEQ
[2019-02-19] MEDS ORDERED: POTASSIUM 25 MEQ EFFERV TAB PO ONE (13:08)
[2019-02-19] MEDS ORDERED: Magnesium Sulfate 2gm IVPB 2 G/50 ML BAG IV ONE (13:08)
--- NOTE | 2019-02-19 13:14 | RAD REPORT ---
EXAM DESCRIPTION: US - Renal Ultrasound-Complete - 02/19/2019 12:31 pm CLINICAL HISTORY: . Abdominal pain COMPARISON: February 18, 2019 cat scan FINDINGS: The right kidney measures 10 cm with a mildly increased echotexture. Mild pyelocaliectasis . The left kidney measures 11 cm with a mildly increased echotexture. . Mild pyelocaliectasis A renal abscess is not seen. No gross abnormality of bladder IMPRESSION: Mildly increased renal echotexture with mild pyelocaliectasis likely related to pyelonep hritis. An abscess is not visualized
[2019-02-19] MEDS: Meropenem 1,000 MG in NA CHLORIDE 0.9% 100 ML IV SCH ×2 (13:15→20:36)
--- NOTE | 2019-02-19 14:14 | CON ---
Date of Consultation: 02/19/2019 Brief History Of Present Illness: Patient is a 23-year-old female with past medical history of asthma, gastritis, recurrent urinary tract infections every 3 months who developed fever, cough, nausea, vomiting, abdominal and flank pain for approximately 1 week, associated with chills, graduall y worsening and intense, and as such, she came to the emergency room. There are sick people around a t home. She denies any other gastrointestinal symptoms, but workup revealed that she in fact had ron ateral pyelonephritis and was started on antibiotics. She was seen on the floor, but ultimately had an episode of significant hypotension and near-syncope. Her blood pressure by report was in the 80s and she was becoming less responsive. As such, she was transferred to the ICU and I was consulted fo r emergency placement of a central venous catheter as the patient had minimal small peripheral IV acc ess. Past Medical History: Significant for asthma, gastritis. Past Surgical History: Negative. Social History: She lives with her . She denies smoking, alcohol, or recreational drug use. Family History: By report significant for UTIs. Home Medications: None. Review of Systems: A 10-point review of systems other than HPI, denies. Physical Examination: Vital Signs: At the time of my examination, her BMI is 23.7. Blood pressure of 89/54, pulse is tach ycardic at 120, respiratory rate 18, temperature 101.6. General: She is awake, alert, and oriented. Psychiatric: She is appropriately conversive. HEENT: She is normocephalic. Sclerae anicteric. Mucous membranes are moist. Oropharynx is clear. Neck: Supple. No JVD. Chest: Normal expansion and excursion. Cardiovascular: Regular Rate and rhythm. Pulmonary: Clear to auscultation bilaterally. Abdomen: Soft with mild global tenderness to palpation. Extremities: No clubbing, cyanosis, or edema. Skin: Warm and dry. Laboratory Exam: Revealed a white blood cell count of 15.5, hemoglobin is 9.6, hematocrit of 27.7, p latelet count is 171. Her neutrophils are 79%. Her sodium 142, potassium 2.9, chloride 114, carbon dioxide 22, BUN 3, creatinine is 0.7, glucose 104. Her lactic acid 1.4. AST is 50, ALT 59, alkaline phosphatase 131. Her lipase is 89 on admission. Procalcitonin 0.84. UA showed 2+ ketones, 2+ bloo d, positive nitrites, 3+ leukocyte esterase, 20-50 red blood cells, 20-50 white blood cells, bacteria greater than 50, moderate mucus, 1+ glucose, 2+ protein. test negative. She had imaging performed as well, which included a CT scan of the abdomen and pelvis, officially read as bilateral p yelonephritis, left greater than right. No evidence for urinary obstruction. Cannot exclude a 9 mm developing abscess in the lower pole of the left kidney. Mild descending and sigmoid colitis without bowel obstruction or perforation. Mild diffuse likely reactive periaortic lymphadenopathy. Assessment And Plan: This is a 23-year-old female who comes in with bilateral pyelonephritis and hyp otension, tachycardia, and poor venous access. I have explained the risks, benefits, and alternative s of placement of an emergent left femoral central venous catheter, including but not limited to blee ding, infection, damage to surrounding tissues, blood clots, injury to other structures, need for fur ther operation procedures. She agrees to proceed as indicated. FRANCISCA/CORA Voice ID: [id number] Report ID: [id number]
--- NOTE | 2019-02-19 15:52 | P.INFCA ---
Sepsis Focused Assessment - Focused Assessment Complete? Sepsis Focused Assessment Completed?: Yes - Sepsis Screen Result Septic Shock: Positive - Evaluation Current stage of sepsis: Septic shock - Vital Signs Reviewed: Yes Heart rate: 92 Blood Pressure: 100/62 Respiratory Rate: 19 O2 Sat by Pulse Oximetry: 100 - Examination Date exam was performed: 02/19/19 Time exam was performed: 15:40 Heart: S1, S2 Lungs: Clear bilaterally Peripheral pulses: 2+ Slightly diminished Peripheral pulse location: Radial Capillary refill: <2 Seconds Skin examination: Normal turgor
--- NOTE | 2019-02-19 21:25 | OP ---
Date of Procedure: 02/19/2019 Surgeon: Devang Mcguire MD, Preoperative Diagnoses: Need for IV access/hypotension. Postoperative Diagnoses: Need for IV access/hypotension. Procedure Performed: Placement of a left femoral central venous catheter. Anesthesia: Local 1% lidocaine without epinephrine used. Estimated Blood Loss: Less than 5 mL. Specimen: None. Findings: Dark red nonpulsatile blood return. Complications: None. Implants: Triple-lumen central venous catheter. Patient remained in ICU in stable condition. Procedure In Detail: After informed consent was obtained, the patient was prepped and draped in the usual sterile fashion and after adequate anesthesia was achieved with 1% lidocaine in the area of the left femoral vein using anatomic landmarks, I cannulated the femoral vein on the first attempt using a microintroducer set. Dark red, nonpulsatile blood was returned. A microwire was then advanced wi thout evidence of complication. The needle was removed and I made a aidan incision overlying the skin and placed the introducer sheath for the micro set. The microwire was then removed I should say and wire out called. At this point, dark red nonpulsatile blood was returned from the introducer sheath and the standard wire was then advanced. The introducer sheath was then removed using sequential di latation. I then placed the catheter using Seldinger technique into the left femoral vein without ev idence of complication. The standard wire was removed and wire out called at this point. For the se cond time, dark red nonpulsatile blood was returned from all ports. The ports all easily flushed and withdrew without any difficulty and they were all flushed with saline until completely clear. The c atheter was then secured to the skin using a 3-0 nylon suture without evidence of complication. A st erile dressing was placed over top. The patient tolerated the procedure well without evidence of com plication, remained in the ICU in stable condition throughout the procedure. All counts were correct at the end of the case. FRANCISCA/CORA Voice ID: [id number] Report ID: [id number]
[2019-02-20] MEDS: NACHLORIDE 0.45% 1,000 ML with POTASSIUM CL 40 MEQ IV SCH ×8 (01:46→20:30)
[2019-02-20] MEDS: ACETAMINOPHEN 500 MG TAB PO PRN ×2 (03:14→14:47)
[2019-02-20 04:52] LABS: Absolute Lymphocytes (CBC) 1.3 K/uL (0.7-4.9); Basophils % 0.1 % (0-1.3); Hematocrit 26.6 % (36.0-45.0); Lymphocytes % 8.1 % (15.3-44.8); MPV 8.8 fL (7.6-11.3); RBC Red Blood Cell Count 3.14 M/uL (3.86-4.86)
[2019-02-20 05:05] LABS: BUN Blood Urea Nitrogen 5 mg/dL (7-18); Bicarbonate 21 mmol/L (21-32); Glucose Level 73 mg/dL (74-106); Magnesium 2.2 mg/dL (1.8-2.4); Potassium 3.5 mmol/L (3.5-5.1); Sodium Level 141 mmol/L (136-145)
[2019-02-20 07:00] VITALS: BMI 25.8
[2019-02-20] MEDS: FAMOTIDINE 20 MG/2 ML VIAL IV SCH (08:57)
[2019-02-20] MEDS: Meropenem 1,000 MG in NA CHLORIDE 0.9% 100 ML IV SCH ×2 (08:58→20:31)
[2019-02-20] MEDS: NAPROXEN 250 MG TAB PO SCH ×2 (09:21→20:31)
--- NOTE | 2019-02-20 09:42 | EKG ---
Test Date: 2019-02-19 Test Time: 10:55:31 Supervisor Lathing: TTAY MEASUREMENT RESULTS: Intervals: Rate: 108 LA: 182 QRSD: 86 QT: 336 QTc: 450 [place]: P: 56 LA: 182 QRS: 71 T: 22 INTERPRETIVE STATEMENTS: Sinus tachycardia Low voltage QRS Borderline ECG No previous ECG available for comparison Electronically Signed On 02-20-19 09:41:07 [employer] OFFIC[employer] by Gui Lopez
--- NOTE | 2019-02-20 10:01 | P.PN ---
Subjective Date of Service: 02/20/19 Primary Care Provider: none Chief Complaint: Chills Subjective: Improving, Doing well Physical Examination - Vital Signs Temperature: 99 F Blood Pressure: 109/65 Pulse: 102 Respirations: 14 Pulse Ox (%): 100 - Physical Exam General: Alert, In no apparent distress, Oriented x3, Cooperative HEENT: Atraumatic Neck: Supple Respiratory: Clear to auscultation bilaterally, Normal air movement Cardiovascular: Normal pulses, Regular rate/rhythm Gastrointestinal: Normal bowel sounds, Soft and benign, Non-distended, No tenderness, No masses, No rebound, No guarding, Other (reports no abdominal pain.) Neurological: Normal speech, Normal strength at 5/5 x4 extr, Normal tone, Normal affect - Studies Microbiology Data (last 24 hrs): 02/18/19 19:05 Throat Culture & Sensitivity - Final NORMAL UPPER RESPIRATORY JENNY GROWN. Medications List Reviewed: Yes Assessment & Plan Discharge Plan: Home Plan to discharge in: 24 Hours Physician Review Additional Text: Impression: Chills, fever secondary severe sepsis related to bilateral pyelonephritis, left greater than right with history of recurrent UTI, without obstruction, cannot exclude 9 mm developing abscess in the lower lobe of left kidney Mild descending/sigmoid colitis without obstruction Acute renal injury secondary to dehydration Tachycardia secondary to dehydration Nausea and vomiting likely related to above Elevated liver function likely related to above Anemia suspect iron deficiency Plan: Chills, fever secondary severe sepsis related to bilateral pyelonephritis, left greater than right with history of recurrent UTI, without obstruction: Patient patient has done well Overnite. Patient currently on IV meropenem. Await urine culture results. Patient without significant pain and tolerating diet. Will advance diet. Orthostatics unremarkable. Will transfer the patient to the floor. Continue aggressive IV fluids. I will turn the service over to hospitalist team tomorrow. I will go over the plan of care with him. Anticipate discharge likely in the next 1-2 days pending clinical improvement and culture results. Mild descending/sigmoid colitis without obstruction: Continue IV Merrem. No more nausea noted. Continue to advance diet. Acute renal injury secondary to dehydration: This has improved. Continue to monitor closely. Nephrology consulted to further evaluate. Tachycardia secondary to dehydration: Has improved. Continue with above plan of care. Nausea and vomiting likely related to above: This has improved. Continue above plan of care. Elevated liver function likely related to above: Overall improved. Anemia suspect iron deficiency: Will provide multi vitamin. Continue monitor closely. Time Spent Managing Pts Care (In Minutes): 55
[2019-02-20] MEDS ORDERED: POTASSIUM 25 MEQ EFFERV TAB PO ONE (11:11)
[2019-02-20] MEDS ORDERED: POTASSIUM CL SA 10 MEQ TAB PO ONE (11:19)
[2019-02-20] MEDS ORDERED: SOD FERRIC GLUC COMPLX/SUCROSE 250 MG in NA CHLORIDE 0.9% 250 ML IV SCH (12:29)
[2019-02-20] MEDS: ENOXAPARIN 30 MG/0.3 ML SQ SCH (16:11)
--- NOTE | 2019-02-20 17:12 | PN ---
Date of Progress Note: 02/20/2019 Subjective: Patient was admitted with pyelonephritis, questionable of kidney abscess. Patient start ed on antibiotic. Patient is feeling much better today. Physical Examination: Vital Signs: Blood pressure 112/60, pulse of 92, afebrile. Chest: Clear to auscultation. Heart: S1, S2 regular. Abdomen: Soft, nontender. Extremities: No edema. Laboratory Data: Sodium 141, potassium 3.1, bicarb 21, BUN 5, creatinine 0.5, calcium 7.4, magnesium 2.2, T-sat of 10.4, ferritin of 111. WBC of 15.6, H and H 8.9/26.6, platelets 158. Current culture still pending. Current Medications: 1.Meropenem. 2.Promethazine. 3.Lovenox. 4.Naproxen. 5.Tylenol. Assessment And Plan: 1.Pyelonephritis. Continue current antibiotics. We will follow up culture. 2.Renal abscess, ruled out with ultrasound. 3.Hypokalemia, hypomagnesemia. Hypomagnesemia, resolved. Hypokalemia, we will supplement. Discontinue IV fluids. 4.Iron-deficiency anemia, start IV iron. We will follow up. CYNDY Voice ID: [id number] Report ID: [id number]
[2019-02-20] MEDS: FAMOTIDINE 20 MG TAB PO SCH (20:32)
[2019-02-21] MEDS: ACETAMINOPHEN 500 MG TAB PO PRN ×2 (04:16→14:40)
[2019-02-21] MEDS: NACHLORIDE 0.45% 1,000 ML with POTASSIUM CL 40 MEQ IV SCH ×2 (04:19)
[2019-02-21 05:42] LABS: BUN Blood Urea Nitrogen 5 mg/dL (7-18); Bicarbonate 22 mmol/L (21-32); Glucose Level 85 mg/dL (74-106); Magnesium 2.1 mg/dL (1.8-2.4); Potassium 4.4 mmol/L (3.5-5.1); Sodium Level 141 mmol/L (136-145)
[2019-02-21 05:55] LABS: Absolute Lymphocytes (CBC) 1.7 K/uL (0.7-4.9); Basophils % 0.5 % (0-1.3); Hematocrit 27.5 % (36.0-45.0); Lymphocytes % 8.8 % (15.3-44.8); MPV 9.4 fL (7.6-11.3); RBC Red Blood Cell Count 3.29 M/uL (3.86-4.86)
[2019-02-21] MEDS: FAMOTIDINE 20 MG TAB PO SCH ×2 (09:29→20:01)
[2019-02-21] MEDS: NAPROXEN 250 MG TAB PO SCH ×2 (09:29→20:00)
[2019-02-21] MEDS: MULTIVITAMIN TAB PO SCH (09:30)
[2019-02-21] MEDS: Meropenem 1,000 MG in NA CHLORIDE 0.9% 100 ML IV SCH (09:31)
--- NOTE | 2019-02-21 09:58 | P.PN ---
Subjective Date of Service: 02/21/19 Primary Care Provider: none Chief Complaint: Pyelonephritis Subjective: Improving (Patient is doing much better denies any pain no urinary complaint) Review of Systems Unremarkable Physical Examination - Vital Signs Temperature: 98.4 F Blood Pressure: 97/54 Pulse: 79 Respirations: 16 Pulse Ox (%): 97 - Physical Exam General: Alert, In no apparent distress, Oriented x3 Respiratory: Clear to auscultation bilaterally Cardiovascular: No edema, Regular rate/rhythm Gastrointestinal: Normal bowel sounds, Soft and benign, Non-distended, No tenderness - Studies Microbiology Data (last 24 hrs): 02/18/19 20:19 Clean Catch Urine [place] Count - Final >100,000 CFU/ML. 02/18/19 20:19 Clean Catch Urine - Final Escherichia Coli 02/18/19 19:05 Throat Culture & Sensitivity - Final NORMAL UPPER RESPIRATORY JENNY GROWN. Medications List Reviewed: Yes Assessment & Plan - Problems (Diagnosis) (1) Pyelonephritis Current Visit: Yes Status: Acute Plan: Patient is 23 years of age admitted with pyelonephritis urine culture shows E. coli change to p.o. levofloxacin white count is mildly elevated Dc meropenem ambulate regular diet vital signs stable no fever for the past 24 hr possible discharge tomorrow Physician Review Additional Text: Impression: Chills, fever secondary severe sepsis related to bilateral pyelonephritis, left greater than right with history of recurrent UTI, without obstruction, cannot exclude 9 mm developing abscess in the lower lobe of left kidney Mild descending/sigmoid colitis without obstruction Acute renal injury secondary to dehydration Tachycardia secondary to dehydration Nausea and vomiting likely related to above Elevated liver function likely related to above Anemia suspect iron deficiency Plan: Chills, fever secondary severe sepsis related to bilateral pyelonephritis, left greater than right with history of recurrent UTI, without obstruction: Patient patient has done well Overnite. Patient currently on IV meropenem. Await urine culture results. Patient without significant pain and tolerating diet. Will advance diet. Orthostatics unremarkable. Will transfer the patient to the floor. Continue aggressive IV fluids. I will turn the service over to hospitalist team tomorrow. I will go over the plan of care with him. Anticipate discharge likely in the next 1-2 days pending clinical improvement and culture results. Mild descending/sigmoid colitis without obstruction: Continue IV Merrem. No more nausea noted. Continue to advance diet. Acute renal injury secondary to dehydration: This has improved. Continue to monitor closely. Nephrology consulted to further evaluate. Tachycardia secondary to dehydration: Has improved. Continue with above plan of care. Nausea and vomiting likely related to above: This has improved. Continue above plan of care. Elevated liver function likely related to above: Overall improved. Anemia suspect iron deficiency: Will provide multi vitamin. Continue monitor closely.
[2019-02-21] MEDS: levoFLOXacin 500 MG TAB PO SCH (10:30)
--- NOTE | 2019-02-21 13:48 | PN ---
Date of Progress Note: 02/21/2019 Subjective: Patient doing well. No nausea. No vomiting. No abdominal pain. Physical Examination: Vital Signs: Blood pressure 97/54, pulse of 74, afebrile. Chest: Clear to auscultation. Heart: S1, S2 regular. Abdomen: Soft, nontender. Extremities: No edema. Laboratory Data: WBC 19.6, H and H 9.3/27.5, platelets 249. Sodium 141, potassium 4.4, bicarb 22, B UN 5, creatinine 0.5, calcium 8.5, phos 4, magnesium 2.2. Current culture growing E coli. Current Medications: Include Levaquin 500 daily, promethazine, albuterol, Lovenox, IV iron, naproxen . Assessment And Plan: 1.Acute kidney injury secondary to toxic acute tubular necrosis, recovered, resolved. 2.Urinary tract infection, pyelonephritis secondary to Escherichia coli. Continue Levaquin. 3.Hypokalemia, hypomagnesemia, resolved. 4.Iron-deficiency anemia. Continue intravenous iron. Patient cleared from the renal standpoint for discharge planning to follow up in 2 to 4 weeks. EDGADRO/CORA Voice ID: [id number] Report ID: [id number]
[2019-02-21] MEDS: ONDANSETRON 4 MG/2 ML VIAL IV PRN (14:41)
[2019-02-21] MEDS: ENOXAPARIN 30 MG/0.3 ML SQ SCH (17:00)
[2019-02-22 05:28] LABS: Absolute Lymphocytes (CBC) 2.1 K/uL (0.7-4.9); Basophils % 0.7 % (0-1.3); Hematocrit 28.2 % (36.0-45.0); Lymphocytes % 21.3 % (15.3-44.8); MPV 9.2 fL (7.6-11.3); RBC Red Blood Cell Count 3.39 M/uL (3.86-4.86)
[2019-02-22 05:53] LABS: Blood Morphology Comment NOT SEEN (NOT SEEN); Platelet Estimate ADEQ
[2019-02-22 07:08] LABS: BUN Blood Urea Nitrogen 9 mg/dL (7-18); Bicarbonate 26 mmol/L (21-32); Glucose Level 91 mg/dL (74-106); Magnesium 2.1 mg/dL (1.8-2.4); Potassium 4.4 mmol/L (3.5-5.1); Sodium Level 140 mmol/L (136-145)
[2019-02-22] MEDS: FAMOTIDINE 20 MG TAB PO SCH (08:57)
[2019-02-22] MEDS: MULTIVITAMIN TAB PO SCH (08:58)
[2019-02-22] MEDS: NAPROXEN 250 MG TAB PO SCH (08:58)
[2019-02-22] MEDS: levoFLOXacin 500 MG TAB PO SCH (08:58)
[2019-02-22] MEDS ORDERED: levoFLOXacin 500 MG TAB PO SCH (09:00)
--- NOTE | 2019-02-22 09:12 | P.DS ---
Admission Date: 02/18/19 Discharge Date: 02/22/19 Primary Care Provider: none Disposition: ROUTINE DISCHARGE Discharge Condition: GOOD Reason for Admission: Pyelonephritis - Problems (1) Pyelonephritis Current Visit: Yes Status: Acute Brief History of Present Illness: Patient admitted with nausea vomiting was found to have pyelonephritis Hospital Course: Patient did well at the time of discharge alert oriented responsive cooperative vital signs all stable chest clear abdomen soft white count is back to culture positive for E. coli sensitive to levofloxacin 7 days of levofloxacin was sent to the pharmacy she is to follow up with the primary care physician vital signs stable laboratory data review white count at discharge 9.9 Vital Signs/Physical Exam: Temp Pulse Resp BP Pulse Ox 97.5 F 72 15 104/58 L 97 02/22/19 04:00 02/22/19 04:00 02/22/19 04:00 02/22/19 04:00 02/22/19 04:00 Laboratory Data at Discharge: WBC 9.9 K/uL (4.3-10.9) D 02/22/19 05:00 Hgb 9.9 g/dL (12.0-15.0) L 02/22/19 05:00 Hct 28.2 % (36.0-45.0) L 02/22/19 05:00 Plt Count 401 K/uL (152-406) D 02/22/19 05:00 Sodium 140 mmol/L (136-145) 02/22/19 06:37 Potassium 4.4 mmol/L (3.5-5.1) 02/22/19 06:37 BUN 9 mg/dL (7-18) 02/22/19 06:37 Creatinine 0.57 mg/dL (0.55-1.3) 02/22/19 06:37 Glucose 91 mg/dL (74-106) 02/22/19 06:37 Magnesium 2.1 mg/dL (1.8-2.4) 02/22/19 06:37 Total Bilirubin 0.9 mg/dL (0.2-1.0) 02/19/19 11:44 AST 50 U/L (15-37) H 02/19/19 11:44 ALT 59 U/L (12-78) 02/19/19 11:44 Alkaline Phosphatase 131 U/L (45-117) H 02/19/19 11:44 Lipase 89 U/L (73-393) 02/18/19 19:20 Home Medications: levoFLOXacin [Levaquin*] 500 mg PO DAILY #7 tab 02/21/19 New Medications: levoFLOXacin [Levaquin*] 500 mg PO DAILY #7 tab Patient Discharge Instructions: Patient to follow up by primary care physicians please give her a list. Please call in Sidekick Gamesaquin to the pharmacy Diet: Regular Activity: Ad manohar
[2019-02-22 09:20] VITALS: O2SAT 96
[2019-02-22 11:15] VITALS: BP 109/55; TEMP 98.2
[2019-02-22 12:00] LABS: C.trachomatis RNA,TMA Not Detected (Not Detected)
[2019-02-22 22:15] LABS: Immunoglobulin A 138 mg/dL (47-310); Immunoglobulin G 1084 mg/dL (600-1640); Immunoglobulin M 88 mg/dL (50-300)
[2019-02-23 03:17] LABS: HBsAG Nonreactive (Nonreactive)
--- NOTE | 2019-02-23 09:20 | CON ---
Date of Consultation: 02/19/2019 Reason For Consultation: Severe pyelonephritis. History Of Present Illness: This is a pleasant 23-year-old female with significant past medical hist ory of recurrent UTI every 4 months. No other past medical history. Patient came to the hospital co mplaining from severe abdominal pain, nausea and vomiting. Found to have pyelonephritis with questio nable abscess on the kidney. For that reason, we have been consulted. Patient denied taking any non steroidal. Patient denied diabetes. No autoimmune disease. Patient was started on Zosyn and Levaquin feeling slightly better. Past Medical History: Recurrent UTIs. Allergies: KNOWN DRUGS ALLERGY. Family History: Negative. Surgical History: Negative. Social History: Denies smoking. Denies drinking. Denies drugs abuse. Review of Systems: Head and Neck: No red eye. No ear pain. GI: Has nausea, vomiting. : Has polyuria, has dysuria. 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 Neuro: No neuropathy. Musculoskeletal: Low back pain. Endocrine: No polydipsia. Physical Examination: Vital Signs: When I saw the patient, blood pressure of 112/60, pulse of 92, afebrile. Patient had g ood urine output of 3100. Chest: Clear to auscultation. Heart: S1, S2. Abdomen: Soft. Mild tenderness on the right upper quadrant. Extremities: No edema. Neuro: No neuropathy. No focal. Laboratory Data: WBC 15.5, H and H are 9.6/27.7, platelet 171. Sodium 139, potassium 2.9, bicarb 24 , BUN 5, creatinine 0.7, calcium 7.9. Current Medications: The patient on include: 1.Zosyn. 2.Lovenox. 3.Naproxen. 4.IV fluid. Assessment And Plan: 1.Pyelonephritis with a questionable abscess. We will follow up renal ultrasound, continue current antibiotic. We will follow up. 2.Hypokalemia, hypomagnesemia. We will supplement. 3.Dehydration secondary to gastrointestinal loss. Continue aggressive hydration. MA/MODL Voice ID: [id number] Report ID: [id number]
== END 2019-02-22 10:49 | disposition home or self-care (01) | DRG 871 ==
LOC: ER 18:23 → ERHOLD 22:54 → 4TH 02-19 00:15 → 3RD-ICU 02-19 11:04 → 2ND 02-20 12:10
PROVIDERS: ADMIT Internal Medicine; ATTEND Internal Medicine
PROC: 06HN33Z Insertion of Infusion Device into Left Femoral Vein, Percutaneous Approach (ICD-10-PCS; principal; 2019-02-19)
DX: A41.9 Sepsis, unspecified organism (principal); N17.0 Acute kidney failure with tubular necrosis; N10 Acute pyelonephritis; N39.0 Urinary tract infection, site not specified; B96.20 Unspecified Escherichia coli [E. coli] as the cause of diseases classified elsewhere; E87.6 Hypokalemia; D50.9 Iron deficiency anemia, unspecified; E83.42 Hypomagnesemia; E86.0 Dehydration; R65.20 Severe sepsis without septic shock; K52.9 Noninfective gastroenteritis and colitis, unspecified
CPT/HCPCS: 36415; 74177; 76770; 80048; 80053; 80074; 80076; 81003; 81015; 81025; 82607; 82728; 82784; 82947; 83540; 83605; 83690; 83735; 84132; 84145; 84466; 85025; 86308; 87040; 87070; 87077; 87081; 87086; 87088; 87186; 87490; 87590; 87804; 93005; 94760; 96361; 96374; 96375; 97116; 97161; 99285; J0696; J1650; J2270; J2405; J2916; J3475; J7030; J7040; J7120; Q9967

== ENCOUNTER 2019-06-21 18:05 | Emergency (ER) | payer SELFPAY ==
--- OUTSIDE RECORDS SUMMARY | 2019-06-21 18:07 | XMS REPORT ---
:1995 [facility] Organization [facility] Address [address] [place] [address] [place] [id number] Care Team Providers Name Role Phone Unavailable Unavailable Unavailable Problems This patient has no known problems. Allergies, Adverse Reactions, Alerts This patient has no known allergies or adverse reactions. Medications This patient has no known medications.
[2019-06-21 18:37] LABS: Urine Blood NEGATIVE (NEG); Urine Glucose NEGATIVE (NEG); Urine Protein NEGATIVE (NEG)
[2019-06-21 18:43] LABS: Absolute Lymphocytes (CBC) 1.8 K/uL (0.7-4.9); Basophils % 0.5 % (0-1.3); Hematocrit 36.8 % (36.0-45.0); Lymphocytes % 18.9 % (15.3-44.8); MPV 8.9 fL (7.6-11.3); RBC Red Blood Cell Count 4.07 M/uL (3.86-4.86)
[2019-06-21 18:51] LABS: Urine Amorphous Sediment 1+ /HPF (NONE SEEN); Urine Bacteria 20-50 /HPF (<20); Urine Culture Reflex Order REFLEXED; Urine RBC <5 /HPF (NONE SEEN)
[2019-06-21 19:14] LABS: BUN Blood Urea Nitrogen 7 mg/dL (7-18); Bicarbonate 23 mmol/L (21-32); Glucose Level 89 mg/dL (74-106); HCG, Quantitative 43244 mIU/mL (1-3); Potassium 3.6 mmol/L (3.5-5.1); Sodium Level 138 mmol/L (136-145)
--- NOTE | 2019-06-21 20:45 | RAD REPORT ---
EXAM DESCRIPTION: US - 1St Trimest Single 1St Fetus - 06/21/2019 8:18 pm CLINICAL HISTORY: with pelvic pain COMPARISON: None. FINDINGS: Single live intrauterine in breech presentation. The placenta is anterior. No up bchorionic bleed. Amniotic fluid is within normal limits. Cardiac activity 133 beats per minute. BPD 3.3 centimeter 16 weeks 3 days AC 10.8 centimeter 16 weeks 5 days FL 2.1 centimeter 16 weeks 1 day Cervix 4.9 centimeters Right and left ovary appear normal. . An adnexal mass is not noted. No significant free fluid is seen. IMPRESSION: Single live intrauterine in breech presentation. The estimated gestational age 16 weeks 3 days TANNER 12/03/2019. If a survey is desired it should be performed in approximately 2 weeks
--- NOTE | 2019-06-21 20:59 | EDPHYS ---
Physician Documentation [facility] Name: Madison Rutledge Age: 23 yrs Sex: Female : 1995 Arrival Date: 06/21/2019 Time: 18:08 Bed 25 Private MD: ED Physician Nigel Titus HPI: 06/20 18:10 This 23 yrs old Female presents to ER via Ambulatory with complaints of 16 wks jmm , leaking fluid. 18:10 The patient presents to the emergency department with abdominal pain, described as jmm achy, crampy. Onset: The symptoms/episode began/occurred today. This is a 23 year old female that presents to the ED with complaints of pelvic cramping radiating to the back, clear vaginal discharge. Patient denies vomiting, diarrhea. Denies fever, denies cough. Denies vaginal bleeding. 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 - Social history:: Smoking status: Patient denies any tobacco usage or history of. Patient/guardian denies using alcohol, street drugs, IV drugs, tobacco products. ROS: 18:10 Constitutional: Negative for fever, chills, and weight loss, Cardiovascular: Negative jmm for chest pain, palpitations, and edema, Respiratory: Negative for shortness of breath, cough, wheezing, and pleuritic chest pain. 18:10 Back: Positive for radiated pain. 18:10 : Positive for vaginal discharge, pelvic. 18:10 All other systems are negative. Exam: 18:10 Constitutional: This is a well developed, well nourished patient who is awake, alert, jmm and in no acute distress. Head/Face: atraumatic. Eyes: EOMI, no conjunctival erythema appreciated ENT: Moist Mucus Membranes Neck: Trachea midline, Supple Chest/axilla: Normal chest wall appearance and motion. Cardiovascular: Regular rate and rhythm. No edema appreciated Respiratory: Normal respirations, no respiratory distress appreciated 18:10 Skin: General appearance color normal MS/ Extremity: Moves all extremities, no obvious deformities appreciated, no edema noted to the lower extremities Neuro: Awake and alert, normal gait Psych: Behavior is normal, Mood is normal, Patient is cooperative and pleasant 18:10 Abdomen/GI: Inspection: abdomen appears normal, Bowel sounds: normal, Palpation: soft, mild abdominal tenderness, in the suprapubic area. 18:10 Back: CVA tenderness, is absent, is noted bilaterally. Vital Signs: 18:10 BP 110 / 48; Pulse 89; Resp 17; Temp 97.9; Pulse Ox 98% ; Weight 53.98 kg; Height 5 ft. ll1 1 in. (154.94 cm); Pain 2/10; 19:20 BP 103 / 57; Pulse 72; Resp 18; Temp 99.1(O); Pulse Ox 100% on R/A; vc 20:00 BP 106 / 71; Pulse 74; Pulse Ox 100% on R/A; vc 18:10 Body Mass Index 22.48 (53.98 kg, 154.94 cm) ll1 MDM: 18:16 Patient medically screened. [facility] 20:57 Data reviewed: vital signs, nurses notes. Counseling: I had a detailed discussion with flores the patient and/or guardian regarding: the historical points, exam findings, and any diagnostic results supporting the discharge/admit diagnosis, lab results, radiology results, the need for outpatient follow up, to return to the emergency department if symptoms worsen or persist or if there are any questions or concerns that arise at home. ED course: Pain decreased in the ED. Patient is advised to follow up with OB in 1 to 2 days. Patient is otherwise given strict return precautions. Patient understood and agrees with the plan of care. . 06/20 18:22 Order name: Quantitative Hcg; Complete Time: 19:25 [facility] 06/20 18:22 Order name: Abo/rh Typing; Complete Time: 19:11 [facility] 06/20 18:22 Order name: Basic Metabolic Panel; Complete Time: 19:25 [facility] 06/20 18:22 Order name: CBC with Diff; Complete Time: 18:50 [facility] 06/20 18:23 Order name: Urine Microscopic Only; Complete Time: 18:59 [facility] 06/20 18:26 Order name: Urine Dipstick--Ancillary (enter results); Complete Time: 18:50 nd 06/20 18:22 Order name: IV Saline Lock; Complete Time: 18:36 [facility] 06/20 18:22 Order name: Labs collected and sent; Complete Time: 18:36 [facility] 06/20 18:22 Order name: NPO; Complete Time: 18:36 [facility] 06/20 18:22 Order name: Urine Dipstick-Ancillary (obtain specimen); Complete Time: 18:36 [facility] 06/20 18:22 Order name: US 1st Trimest Single 1st Fetus; Complete Time: 20:50 [facility] 06/20 18:26 Order name: Urine --Ancillary (enter results); Complete Time: 18:50 nd 06/20 18:53 Order name: Urine Culture EDLA Administered Medications: No medications were administered Disposition: 06/21 07:32 Co-signature as Attending Physician, Nigel Titus MD I agree with the assessment and [facility] plan of care. Disposition: 06/21/19 20:58 Discharged to Home. Impression: Abdominal and pelvic pain, Urinary tract infection, site not specified. - Condition is Stable. - Discharge Instructions: Urinary Tract Infection, Adult, and Urinary Tract Infection. - Prescriptions for Diclegis 10- 10 mg Oral tablet,delayed release (DR/EC) - take 1 tablet by ORAL route once daily; 20 tablet. Cephalexin 500 mg Oral Capsule - take 1 capsule by ORAL route every 12 hours for 10 days; 20 capsule. - Medication Reconciliation Form, Thank You Letter, Antibiotic Education, Prescription Opioid Use form. - Follow up: Private Physician; When: 1 - 2 days; Reason: Recheck today's complaints, Continuance of care, Re-evaluation by your physician. Signatures: Dispatcher [employer] EDMS Nigel Titus MD MD cha Mickail, Joel, PA PA jmm Calcote, Vanessa, RN RN Tsering Banks RN RN ll1 Corrections: (The following items were deleted from the chart) 06/20 21:07 20:58 06/21/2019 20:58 Discharged to Home. Impression: Abdominal and pelvic pain; vc Urinary tract infection, site not specified. Condition is Stable. Forms are Medication Reconciliation Form, Thank You Letter, Antibiotic Education, Prescription Opioid Use. Follow up: Private Physician; When: 1 - 2 days; Reason: Recheck today's complaints, Continuance of care, Re-evaluation by your physician. flores
--- NOTE | 2019-06-21 20:59 | ER ---
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 No fever. 16 weeks . G2, P0. Coronavirus screen: Patient denies a cough. Patient denies shortness of breath or difficulty breathing. Patient denies measured and/or subjective temperature greater than 100.4F. Patient denies travel on a cruise ship or to a country the [facility] currently lists as an affected area. Patient denies contact with known and/or suspected case of COVID-19. Ebola Screen: Patient denies travel to an Ebola-affected area in the 21 days before illness onset. Initial Sepsis Screen: Does the patient meet any 2 criteria? No. Patient's initial sepsis screen is negative. Does the patient have a suspected source of infection? No. Patient's initial sepsis screen is negative. Risk Assessment: Do you want to hurt yourself or someone else? Patient reports no desire to harm self or others. 18:10 Method Of Arrival: Ambulatory ll1 18:10 Acuity: DAE 3 ll1 20:52 Onset of symptoms was June 21, 2019. vc Triage Assessment: 19:30 General: Appears in no apparent distress. uncomfortable, Behavior is cooperative, vc appropriate for age, anxious. Pain: Complains of pain in abdomen. 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 - Social history:: Smoking status: Patient denies any tobacco usage or history of. Patient/guardian denies using alcohol, street drugs, IV drugs, tobacco products. Screenin:27 Abuse screen: Denies threats or abuse. Denies injuries from another. Nutritional ph screening: No deficits noted. Tuberculosis screening: No symptoms or risk factors identified. Fall Risk None identified. Assessment: 19:30 General: Appears in no apparent distress. uncomfortable, Behavior is cooperative, vc appropriate for age, anxious. Pain: Complains of pain in abdomen. Neuro: Level of Consciousness is awake, alert, obeys commands, Oriented to person, place, time, situation. Cardiovascular: Capillary refill < 3 seconds Patient's skin is warm and dry. Respiratory: Respiratory effort is even, unlabored. GI: Reports lower abdominal pain. : Reports cramping, discharge. EENT: No signs and/or symptoms were reported regarding the EENT system. Musculoskeletal: No signs and/or symptoms reported regarding the musculoskeletal system. Circulation, motion, and sensation intact. Range of motion: intact in all extremities. 20:54 Reassessment: Patient and/or family updated on plan of care and expected duration. Pain vc level reassessed. Patient is alert, oriented x 3, equal unlabored respirations, skin warm/dry/pink. Patient states feeling better. Patient states symptoms have improved. Vital Signs: 18:10 BP 110 / 48; Pulse 89; Resp 17; Temp 97.9; Pulse Ox 98% ; Weight 53.98 kg; Height 5 ft. ll1 1 in. (154.94 cm); Pain 2/10; 19:20 BP 103 / 57; Pulse 72; Resp 18; Temp 99.1(O); Pulse Ox 100% on R/A; vc 20:00 BP 106 / 71; Pulse 74; Pulse Ox 100% on R/A; vc 18:10 Body Mass Index 22.48 (53.98 kg, 154.94 cm) ll1 ED Course: 18:08 Patient arrived in ED. mr 18:12 Triage completed. ll1 18:13 Arm band placed on Patient placed. ll1 18:14 Jose Daniel De La Vega PA is PHCP. jm 18:14 Nigel Titus MD is Attending Physician. jm 18:25 Ellie Rubi, EVAN is Primary Nurse. ph 18:27 Patient has correct armband on for positive identification. Bed in low position. Call ph light in reach. Side rails up X 1. Pulse ox on. NIBP on. Door closed. Noise minimized. Warm blanket given. 18:36 Initial lab(s) drawn, by me, sent to lab. Urine collected: clean catch specimen, clear, jp3 celestino colored. Inserted saline lock: 22 gauge in left antecubital area, using aseptic technique. Blood collected. Patient maintains SpO2 saturation greater than 95% on room air. 20:18 US 1st Trimest Single 1st Fetus In Process Unspecified. EDMS 20:51 No provider procedures requiring assistance completed. vc 20:56 IV discontinued, intact, bleeding controlled, No redness/swelling at site. Pressure vc dressing applied. 21:03 Removal of peripheral IV. Catheter intact, dressing applied. vc Administered Medications: No medications were administered Outcome: 20:55 Discharged to home ambulatory. vc 20:55 Condition: good 20:55 Discharge instructions given to patient, Instructed on discharge instructions, follow up and referral plans. Demonstrated understanding of instructions, follow-up care. 20:58 Discharge ordered by . flores 21:07 Prescriptions given X 2. vc 21:07 Patient left the ED. vc Signatures: Dispatcher [employer] EDMS Jose Daniel De La Vega PA PA jmm Rivera, Mary mr Ellie Rubi RN RN Abiel Pickens jp3 Jocelyn Talavera RN RN Tsering Banks RN RN ll1
[2019-06-21 23:19] VITALS: BP 159/103; TEMP 98.6; O2SAT 95
== END 2019-06-21 21:07 | disposition home or self-care (01) ==
LOC: ER 18:05
DX: O23.42 Unspecified infection of urinary tract in pregnancy, second trimester (principal); Z3A.16 16 weeks gestation of pregnancy; Z91.018 Allergy to other foods
CPT/HCPCS: 36415; 76801; 80048; 81003; 81015; 81025; 84702; 85025; 86900; 86901; 87086; 87088; 99284